=== PATIENT | female | born 1955 | race Caucasian/White ===

== ENCOUNTER 2022-03-07 19:47 | Observation (INO) | payer MEDICARE, SELFPAY ==
[2022-03-07 19:48] VITALS: BP 103/80; PULSE 113; RESP 15; TEMP 36.7; O2SAT 94; BMI 29.8
[2022-03-07 20:37] LABS: Hematocrit 35.3 % (37-47); Hemoglobin 10.9 g/dL (12.0-15.0); Mean Corp Hgb Conc 30.9 g/dL (32-36); Mean Corpuscular Hgb 25.3 pg (27.0-32.0); Mean Corpuscular Volume 82.1 fL (81-99); Mean Platelet Vol. 9.1 fl (6.2-12.0); POSITIVE COUNT YES; POSITIVE DIFFERENTIAL YES; POSITIVE MORPHOLOGY YES; Platelet Count 285 K/mm3 (150-450); RBC Distribution Width CV 14.6 % (11.6-14.6); RBC Distribution Width SD 43.4 fl (35.1-43.9)
[2022-03-07 20:52] LABS: Differential Indicated MANUAL DIFF; White Blood Count 1.2 K/mm3 (4.4-11.0)
[2022-03-07 20:54] LABS: Anion Gap 11 (5-15); BUN 15 mg/dL (7-18); BUN/Creat Ratio 17.1 RATIO (10-20); Calcium,Total 9.4 mg/dL (8.5-10.1); Chloride 92 mmol/L (98-107); Creatinine, Serum 0.88 mg/dL (0.55-1.02); EST Glomerular Filtration Rate 68 mL/min (>60); Est Glom Filt Rate - Afr Amer 82 mL/min (>60); Estimated Creatinine Clearance 52.84 ml/min; Glucose 136 mg/dL (74-106); Potassium 3.4 mmol/L (3.5-5.1); Sodium Level 130 mmol/L (136-145)
[2022-03-07 21:25] VITALS: BP 99/70; PULSE 96; RESP 18; O2SAT 96
--- NOTE | 2022-03-07 21:32 | EKG12_ITS ---
Test Reason : DYSRHYTHMIA Blood Pressure : / mmHG Vent. Rate : 091 BPM Atrial Rate : 091 BPM P-R Int : 150 ms QRS Dur : 086 ms QT Int : 376 ms P-R-T Axes : 009 -22 005 degrees QTc Int : 462 ms Normal sinus rhythm Poor R wave progression Confirmed by CRYSTAL SAUL, RONI ([id number]), restaurant expeditor TANJA PEÑA ([id number]) on 03/10/2022 7:54:57 AM Referred By: PL Confirmed By:RONI ROJAS MD
--- NOTE | 2022-03-07 21:33 | EDS_ITS ---
HPI History of Present Illness Chief Complaint: Nausea/Vomiting/Diarrhea Informant: patient Narrative Narrative: Patient presents with nausea vomiting diarrhea and just feeling overall weak. She was diagnosed with ovarian cancer back in December. Had hysterectomy and lysis of some adhesions in January. She was told that they got all the cancer. It sounds like the adhesions were thought to be due to prior surgery she has had including appendectomy. She just had her first chemotherapy on Wednesday. On Wednesday she started having diarrhea and has had some nausea vomiting. Her appetite is down. She just feels weak and tired. She is not really having pain. She has not had fevers chills. No coughing. No dysuria. No rashes. It sounds like she is on Zofran at home but it is just not helping. Only other medical problem that she states is history of asthma. Nothing really makes her symptoms better. Trying to eat or drink makes them worse. [facility] Medical History Asthma Cancer Home Medications fluticasone furoate 100 mcg-vilanterol 25 mcg/dose inhalation powder (Breo Ellipta) 1 inh inhalation DAILY 03/07/22 [History Last Taken Unknown] montelukast 10 mg tablet 10 mg PO DAILY 03/07/22 [History Last Taken Unknown] ondansetron HCl 4 mg tablet 4 mg PO Q8H PRN Nausea 03/07/22 [History Last Taken Unknown] pravastatin 80 mg tablet 80 mg PO DAILY 03/07/22 [History Last Taken Unknown] Allergy/AdvReac Type Severity Reaction Status Date / Time cephalexin [From Keflex] Allergy Nausea/Vom/ Verified 03/07/22 19:52 Diarrhea Surgical History History of appendectomy History of cholecystectomy Social History Smoking Status: Never smoker ROS ROS ED Constitutional Constitutional ED: Denies chills, fever(s) or sweats Eyes Eyes: Denies change in vision ENT ENT ED: Denies sore throat Cardiovascular Cardiovascular: Denies chest pain or palpitations Respiratory/Chest Respiratory/Chest: Denies cough or dyspnea Gastrointestinal Gastrointestinal: Reports diarrhea, nausea and vomiting; Denies abdominal pain, constipation or melena Genitourinary Genitourinary ED: Denies dysuria Musculoskeletal Musculoskeletal: Denies arthralgias or myalgias Integumentary Denies rash Neurologic Neurologic: Denies headache(s) Endocrine Endocrinology: Denies polydipsia or polyuria Hematologic/Lymphatic Hematologic/Lymphatic: Denies easy bleeding or easy bruising Allergic/Immunologic Allergic/Immunologic ED: Denies urticaria EXAM Physical Exam Const Vital Signs: 03/07/22 19:48 03/07/22 21:25 03/07/22 23:10 Temperature 98.0 F Temperature Source Temporal Pulse Rate 113 H 96 90 Respiratory Rate 15 18 Blood Pressure 103/80 99/70 104/69 Blood Pressure Mean 87 79 80 Pulse Ox 94 96 Oxygen Delivery Method Room Air Room Air 03/08/22 00:32 Temperature Temperature Source Pulse Rate 86 Respiratory Rate 18 Blood Pressure 125/60 H Blood Pressure Mean 81 Pulse Ox 95 Oxygen Delivery Method Room Air Positive well nourished and well developed Constitutional Narrative: Patient does look a bit tired. She is nontoxic. General Appearance ED: well developed and NAD; Negative for cyanotic or diaphoretic HEENT Reports dry mucous membranes Mouth ED: Yes dry mucous membranes Mouth: dry mucous membranes Eyes General Eye ED: Negative for scleral icterus Neck no JVD Resp normal respiratory effort and clear to auscultation bilaterally Auscultation: Negative for wheezes Cardio regular rate and regular rhythm GI normal to inspection, nondistended, normoactive bowel sounds and non-tender GI Narrative: Well-healed lower midline incision Auscultation: normoactive bowel sounds Back/Spine no CVA tenderness Extremity normal to inspection General Extremety ED: Negative for edema or tenderness General Extremity: Negative for edema Neuro oriented x3 Psych mental status grossly normal Skin no rashes or lesions noted MDM MDM MDM Narrative Medical decision making narrative: Patient is rechecked. She is still nauseated and does not feel well. She has been given fluids. Her heart rate is improved a little bit. We will give her some Phenergan. She is not really having any UTI symptoms. However, she did have a UTI in January when she got dehydrated last time. Blood work shows low white count at 1.2 with an absolute neutrophil count of 0.7. Electrolytes show mild decrease his sodium potassium. Creatinine is preserved. Glucose is minimally elevated. Mild nonspecific elevation of alkaline phosphatase. Lactate is 2.0. Urine shows 10-25 white cells but negative nitrites and a relatively small amount leukocyte esterase. Patient is concerned about going home because she feels very weak tired and is still nauseated and does not feel she can eat or drink. I will try some Phenergan to see if this helps. I have paged her oncologist to discuss the case with them. I discussed the case with Dr. Clay. Patient is not improving. With her decreased absolute neutrophil count nausea vomiting she will be admitted. We discussed her urinalysis. Since she is not having a fever and urinary symptoms we will hold antibiotics. I did discuss case with hospitalist. Lab Data Labs: Laboratory Results - last 24 hr 03/07/22 03/07/22 03/07/22 20:28 20:28 21:45 WBC 1.2 L* RBC 4.30 Hgb 10.9 L Hct 35.3 L MCV 82.1 MCH 25.3 L MCHC 30.9 L RDW Std Deviation 43.4 RDW Coeff of Alvarez 14.6 Plt Count 285 MPV 9.1 Neut % (Auto) Not Reportable Absolute Neuts (auto) 0.7 L Absolute Lymphs (auto) 0.39 L Total Counted 100 Neutrophils % (Manual) 59 Band Neutrophils % 2 Lymphocytes % (Manual) 32 Monocytes % (Manual) 3 Eosinophils % (Manual) 4 Diff Path Review May foll Dohle Bodies 2+ Sodium 130 L Potassium 3.4 L Chloride 92 L Carbon Dioxide 27.0 Anion Gap 11 BUN 15 Creatinine 0.88 Estim Creat Clear Calc 52.84 Est GFR (MDRD) Af Amer 82 Est GFR (MDRD) Non-Af 68 BUN/Creatinine Ratio 17.1 Glucose 136 H Lactic Acid Calcium 9.4 Total Bilirubin 0.70 Direct Bilirubin 0.28 AST 66 H ALT 46 Alkaline Phosphatase 148 H Total Protein 8.3 H Albumin 2.6 L Globulin 5.7 H Lipase 78 Urine Color Urine Clarity Urine pH Ur Specific [place] Urine Protein Urine Glucose (UA) Urine Ketones Urine Occult Blood Urine Nitrite Urine Bilirubin Urine Urobilinogen Ur Leukocyte Esterase Urine RBC Urine WBC Ur Squamous Epith Cells Urine Bacteria Hyaline Casts Urine Mucus 03/07/22 03/07/22 21:45 23:05 WBC RBC Hgb Hct MCV MCH MCHC RDW Std Deviation RDW Coeff of Alvarez Plt Count MPV Neut % (Auto) Absolute Neuts (auto) Absolute Lymphs (auto) Total Counted Neutrophils % (Manual) Band Neutrophils % Lymphocytes % (Manual) Monocytes % (Manual) Eosinophils % (Manual) Diff Path Review Dohle Bodies Sodium Potassium Chloride Carbon Dioxide Anion Gap BUN Creatinine Estim Creat Clear Calc Est GFR (MDRD) Af Amer Est GFR (MDRD) Non-Af BUN/Creatinine Ratio Glucose Lactic Acid 2.0 Calcium Total Bilirubin Direct Bilirubin AST ALT Alkaline Phosphatase Total Protein Albumin Globulin Lipase Urine Color Yellow Urine Clarity Sl. Cloudy Urine pH 6.0 Ur Specific [place] 1.020 Urine Protein 100 H Urine Glucose (UA) 100 H Urine Ketones 5 H Urine Occult Blood 50 H Urine Nitrite Negative Urine Bilirubin 1 H Urine Urobilinogen 1 H Ur Leukocyte Esterase 25 H Urine RBC 0-5 SEEN Urine WBC 10-25 SEEN Ur Squamous Epith Cells 0-5 SEEN Urine Bacteria 2+ Hyaline Casts 10-25 SEEN Urine Mucus 0 SEEN Radiography Diagnostic Testing: Clinical Impression(s) from Imaging Studies Chest X-Ray 03/07/22 21:55 IMPRESSION: No evidence of active intrathoracic disease. Electronically Signed: Victorina Reese MD at 22:13 EDT , Discharge Plan Triage Chief Complaint: Nausea/Vomiting/Diarrhea ED Provider: Darion Mejia Dx/Rx/DC Orders Clinical Impression: Intractable vomiting with nausea, Diarrhea, Neutropenia, Chemotherapy adverse reaction Prescriptions: No Action pravastatin 80 mg Tablet 80 mg PO DAILY montelukast 10 mg Tablet 10 mg PO DAILY fluticasone furoate-vilanterol [Breo Ellipta] 100-25 mcg/dose Blister With Device 1 inh INHALATION DAILY ondansetron HCl [Zofran] 4 mg Tablet 4 mg PO Q8H PRN (Reason: Nausea) Disposition Disposition: Acute Care Hospital [facility]
[2022-03-07] MEDS: 0.9% Normal Saline 1,000 ML 1000 ML IV (21:48)
[2022-03-07] MEDS: Ondansetron 4 MG/2 ML Vial IV (21:48)
--- NOTE | 2022-03-07 21:55 | RAD_ITS ---
STUDY: X-RAY CHEST REASON FOR EXAM: Female, 66 years old. sob PT RCVD HER 1ST CHEMO ON WEDNESDAY FOR OVARIAN CA. C/O NAUSEA, DIARRHEA AND DRY HEAVING SINCE WEDNESDAY TECHNIQUE: AP portable. 9:54 PM. COMPARISON: None. FINDINGS: LINES/DEVICES: Indwelling central venous catheter tip in the region of the mid SVC with port overlying the left chest. LUNGS: No consolidation. No pneumothorax. MEDIASTINUM: Aorta is tortuous and atherosclerotic. CARDIAC SILHOUETTE: Not enlarged. BONES AND SOFT TISSUES: Degenerative changes in the dorsal spine. Old right rib fractures. RAD/Chest 1 View (Portable) IMPRESSION: No evidence of active intrathoracic disease. Electronically Signed: Victorina Reese MD at 22:13 EDT ,
--- NOTE | 2022-03-07 21:56 | NURSING ---
attempted to obtain urine pt up to [facility] [place] unable to void.
[2022-03-07 22:14] LABS: Dohle Bodies 2+; Eosinophil 4 % (0-5); Lymphocyte 32 % (19-41); Monocyte 3 % (0-10); Neutrophil-Band 2 % (0-5); Neutrophil-Segmented 59 % (47-70); Total Cells Counted 100 (MANUAL DIFF)
[2022-03-07 22:16] LABS: Absolute Lymphocyte Count 0.39 X10^3/uL (0.83-4.51); Absolute Neutrophil Count 0.7 X10^3/uL (2.0-7.7)
[2022-03-07 22:33] LABS: AST(SGOT) 66 U/L (15-37); Alanine Aminotransfer ALT/SGPT 46 U/L (13-56); Albumin, Serum 2.6 g/dL (3.2-5.0); Alkaline Phosphatase 148 U/L (45-117); Bilirubin, Direct 0.28 mg/dL (0.00-0.30); Globulin 5.7 g/dL (2.2-4.2); Lipase 78 U/L (73-393); Protein, Total 8.3 g/dL (6.4-8.2)
--- NOTE | 2022-03-07 22:34 | NURSING ---
pt up to [facility] [place] unable to obtain urine sample.
[2022-03-07 23:10] VITALS: BP 104/69; PULSE 90
[2022-03-07 23:13] LABS: Mucous, Urine 0 SEEN /hpf (<or=2+)
[2022-03-07 23:34] LABS: Color, Urine Yellow (Yellow); Glucose, Dipstick 100 mg/dl (Normal); Ketone-Dipstick 5 mg/dl (Negative); Leukocyte Esterase-Dipstick 25 /ul (Negative); Nitrite-Dipstick Negative (Negative); Occult Blood-Urine 50 /ul (Negative); Protein-Dipstick 100 mg/dl (Negative); Urine Clarity Sl. Cloudy (Clear); Urine Urobilinogen 1 mg/dl (Normal)
[2022-03-07 23:45] LABS: Urine Bilirubin Dipstick 1 mg/dL (Negative)
[2022-03-07 23:47] LABS: Bacteria 2+ /hpf (None Seen); White Blood Cells 10-25 SEEN /hpf (0-5)
[2022-03-07 23:48] LABS: Squamous Epithelial Cells - UA 0-5 SEEN /hpf (5-10)
[2022-03-07 23:49] LABS: Hyaline Cast 10-25 SEEN /lpf (0-5); Red Blood Cells-Urine 0-5 SEEN /hpf (0-5)
[2022-03-08] VITALS (10 sets, daily range): BP systolic 90–125; BP diastolic 58–73; PULSE 70–86; RESP 16–18; TEMP 36.7–37.4; O2SAT 95–99; BMI 29.5
[2022-03-08] MEDS: proMETHazine 25 MG/ML Syringe 12.5 MG IM (00:21)
--- NOTE | 2022-03-08 00:34 | PCM.HP.STD ---
HPI - General General Date of Admission: 03/08/22 Date of Service: 03/08/22 Chief Complaint: N/V/D, recent chemotherapy start. HPI Narrative The patient is a 66 y/o F w/ PMHx: Asthma w/ Allergic rhinitis, HLD, Diagnosis 12/2021 Ovarian CA s/p hysterectomy with GABBY 01/2022 with reportedly diffusely metastatic cancer at that time with initiation of chemotherapy starting this Wednesday with onset starting on Wednesday loose stools, nausea, emesis, fatigue, malaise, poor intake ability with no fever or chills nor any recent cough, dyspnea, dysuria, abdominal pain however given difficulty maintaining appropriate intake prompted ED presentation. Patient of note denies any radiation history. She does have a left upper chest port. She follows with Dr. Crain with [facility] oncology. Work-up in the ED included T 98, heart rate initially 113 with most recent repeat 90, BP 103/80 with most recent repeat 104/69, respiratory rate 15-18, 94 to 96% on room air, CBC with WBC 1.2, hemoglobin 10.9, MCV 82.1, platelet 25 with neutropenia and lymphopenia, CMP with sodium 130, potassium 3.4, chloride 92, glucose 136, lactic acid 2.0, total bilirubin 0.70, direct bilirubin 0.28, AST/ALT 66/46, alk phos 148, lipase 78, urinalysis with elevated specific remedy 1.020, protein 100, glucose 100, ketone 5, occult blood 50, negative nitrite, leukocyte Estrace 25, urine WBCs 10-25, 2+ urine bacteria, urine culture pending per ED, blood culture pending per ED x2, chest x-ray with no acute cardiopulmonary findings. In the ED patient administered normal saline bolus and Zofran 4 mg IV x1. [facility] Medical History (Updated 03/08/22 @ 01:[address] Clau Gómez MD) Allergic rhinitis Asthma HLD (hyperlipidemia) Ovarian cancer Overweight Home Medications fluticasone furoate 100 mcg-vilanterol 25 mcg/dose inhalation powder (Breo Ellipta) 1 inh inhalation DAILY 03/07/22 [History Last Taken Unknown] montelukast 10 mg tablet 10 mg PO DAILY 03/07/22 [History Last Taken Unknown] ondansetron HCl 4 mg tablet 4 mg PO Q8H PRN Nausea 03/07/22 [History Last Taken Unknown] pravastatin 80 mg tablet 80 mg PO DAILY 03/07/22 [History Last Taken Unknown] Allergy/AdvReac Type Severity Reaction Status Date / Time cephalexin [From Keflex] Allergy Nausea/Vom/ Verified 03/08/22 01:34 Diarrhea Family History (Updated 03/08/22 @ 01:[address] Clau Gómez MD) Mother CAD (coronary artery disease) HLD (hyperlipidemia) Heart disease Father Heart disease Diabetes age 68 secondary to complicates of diabetes. Surgical History (Updated 03/08/22 @ 01:[address] Clau Gómez MD) History of appendectomy History of cholecystectomy History of hysterectomy Social History (Updated 03/08/22 @ 01:[address] Clau Gómez MD) household members: spouse Smoking Status: Never smoker alcohol intake: never substance use type: does not use ROS ROS Narrative Admission Review of Systems: CONSTITUTIONAL: No weight loss, fever, chills, + weakness or fatigue. HEENT: Eyes: No visual loss, blurred vision, double vision or yellow sclerae. Ears, Nose, Throat: No hearing loss, sneezing, congestion, runny nose or sore throat. SKIN: No rash or itching, lesions, wounds. CARDIOVASCULAR: No chest pain, chest pressure or chest discomfort, palpitations, edema, orthopnea, syncopal events. RESPIRATORY: No shortness of breath, cough or sputum, wheezing, hemoptysis. GASTROINTESTINAL: + anorexia, nausea, vomiting, diarrhea, No abdominal pain, melena, BRBPR. GENITOURINARY: No dysuria, frequency, urgency or retention. NEUROLOGICAL: No headache, dizziness, syncope, paralysis, ataxia, numbness or tingling in the extremities, focal weakness, change in bowel or bladder control, seizure. MUSCULOSKELETAL: + muscle, back pain, joint pain or stiffness. HEMATOLOGIC: No anemia, bleeding or bruising. LYMPHATICS: No enlarged nodes. No history of splenectomy. PSYCHIATRIC: No history of depression or anxiety. ENDOCRINOLOGIC: No reports of sweating, cold or heat intolerance. No polyuria or polydipsia. ALLERGIES: + history of asthma, rhinitis. Vital Signs Vital Signs Vital Signs: 03/07/22 19:48 03/07/22 21:25 03/07/22 23:10 Temperature 98.0 F Temperature Source Temporal Pulse Rate 113 H 96 90 Respiratory Rate 15 18 Blood Pressure 103/80 99/70 104/69 Blood Pressure Mean 87 79 80 Pulse Ox 94 96 Oxygen Delivery Method Room Air Room Air 03/08/22 00:32 Temperature Temperature Source Pulse Rate 86 Respiratory Rate 18 Blood Pressure 125/60 H Blood Pressure Mean 81 Pulse Ox 95 Oxygen Delivery Method Room Air Weight Weight: 174 lb Body Mass Index (BMI) 29.8 Physical Exam Narrative Physical Examination: General: Awake, alert, oriented x 3 and cooperative, laying in the ED bed, fatigued, ill-appearing. Skin: Normal color, normal turgor, no icterus, no cyanosis. HEENT: AT/NC, EOMI, PERRLA, dry MM, no carotid bruits or JVD noted. Lungs: Mildly diminished, greater bases, appropriate effort, no rales, ronchi or wheezing. Heart: Regular rate and rhythm; no gallop, rub audible. Abdomen: Soft, overweight, NTTP no rebound or guarding, ND, mildly hyperactive BS, no HSM. Extremities: No cyanosis, clubbing, or edema. Neurological: Patient awake, alert, oriented as noted, cognitive function baseline intact; pupils equally reactive to light and accommodation, cranial nerves II-XII grossly normal, moving all 4 extremities, no focal deficits, strength moderately global decrease secondary to acute presentation. Psychiatric: Affect appears flat, fatigued, no acute evidence of depressive or anxiety feelings. Results Lab / Micro Data Result Diagrams: 03/07/22 20:28 03/07/22 20:28 Labs: Laboratory Results - last 24 hr 03/07/22 20:28: WBC 1.2 L*, RBC 4.30, Hgb 10.9 L, Hct 35.3 L, MCV 82.1, MCH 25.3 L, MCHC 30.9 L, RDW Std Deviation 43.4, RDW Coeff of Alvarez 14.6, Plt Count 285, MPV 9.1, Neut % (Auto) Not Reportable, Absolute Neuts (auto) 0.7 L, Absolute Lymphs (auto) 0.39 L, Total Counted 100, Neutrophils % (Manual) 59, Band Neutrophils % 2, Lymphocytes % (Manual) 32, Monocytes % (Manual) 3, Eosinophils % (Manual) 4, Diff Path Review May Do tonyahlbria Bodies 2+ 03/07/22 20:28: Sodium 130 L, Potassium 3.4 L, Chloride 92 L, Carbon Dioxide 27.0, Anion Gap 11, BUN 15, Creatinine 0.88, Estim Creat Clear Calc 52.84, Est GFR (MDRD) Af Amer 82, Est GFR (MDRD) Non-Af 68, BUN/Creatinine Ratio 17.1, Glucose 136 H, Calcium 9.4 03/07/22 21:45: Total Bilirubin 0.70, Direct Bilirubin 0.28, AST 66 H, ALT 46, Alkaline Phosphatase 148 H, Total Protein 8.3 H, Albumin 2.6 L, Globulin 5.7 H, Lipase 78 03/07/22 21:45: Lactic Acid 2.0 03/07/22 23:05: Urine Color Yellow, Urine Clarity Sl. Cloudy, Urine pH 6.0, Ur Specific Sims 1.020, Urine Protein 100 H, Urine Glucose (UA) 100 H, Urine Ketones 5 H, Urine Occult Blood 50 H, Urine Nitrite Negative, Urine Bilirubin 1 H, Urine Urobilinogen 1 H, Ur Leukocyte Esterase 25 H, Urine RBC 0-5 SEEN, Urine WBC 10-25 SEEN, Ur Squamous Epith Cells 0-5 SEEN, Urine Bacteria 2+, Hyaline Casts 10-25 SEEN, Urine Mucus 0 SEEN Radiology Impression Chest X-Ray 03/07/22 21:55 IMPRESSION: No evidence of active intrathoracic disease. Electronically Signed: Victorina Reese MD at 22:13 EDT Reading Location ID and State: [address] [place] [address] Tel , Service support , Assessment & Plan Assessment/Plan (1) Nausea vomiting and diarrhea: PLAN: Plan The patient is a 66 y/o F w/ PMHx: Asthma w/ Allergic rhinitis, HLD, Diagnosis 12/2021 Ovarian CA s/p hysterectomy with GABBY 01/2022 with reportedly diffusely metastatic cancer at that time with initiation of chemotherapy starting this Wednesday with onset starting on Wednesday loose stools, nausea, emesis, fatigue, malaise, poor intake ability with no fever or chills nor any recent cough, dyspnea, dysuria, abdominal pain however given difficulty maintaining appropriate intake prompted ED presentation. #1. N/V/D, suspected reaction from recent chemotherapy however certainly possibility of gastroenteritis: We will admit to medical surgical floor, maintain on neutropenic precautions to be cautious, continue hydration, will obtain c diff, stool cx if any recurrent diarrhea, chest x-ray not marked, urinalysis not marked but noted 2+ urine bacteria with some WC is present although not markedly elevated leukocyte Estrace or nitrite and per Oncology given no urinary symptoms recommended avoidance of initiating abx for ? UTI, PRN snti-emetics, PRN pain regimen, start with clears and ADA. If onset of fevers however will start empiric abx regimen given neutropenic setting. Will continue Oncology consultation, initiated per ED. #2. Lymphopenia, neutropenia, normocytic anemia suspected likely secondary to underlying metastatic Ovarian cancer and recent chemotherapy: Admission CBC with WC 1.2, hemoglobin 10.2, MCV 82.1, platelet 25 with neutropenia and lymphopenia, continue to maintain on neutropenic precautions be cautious, repeat CBC in a.m. Mag and phos levels requested given recent chemotherapy. #3. Hyponatremia, hypokalemia suspected: Given GI losses suspect hypovolemia as etiology, admission sodium 130, chloride 92, continued hydration with repeat CMP in AM. #4. Hypokalemia: Admission K+ 3.4, magnesium and phosphorus levels pending as noted above, supplementation given, repeat level in AM. #5. Hyperglycemia, mild: Admission glucose 136, possibly stress response, hemoglobin A1c requested to be cautious. #6. Chronic Asthma w/ Allergic rhinitis: We will temporarily hold patient home inhalers and in the interim transition to ATC DuoNeb therapies, PRN albuterol, HOB, IS parameters, continue patient home montelukast regimen. #7. Hyperlipidemia: Continue home statin regimen. #8. DVT prophylaxis: SCDs, Lovenox. #9. CODE status: Patient HCPOA is her and her daughter is secondary and living will is currently in place. Discussed CODE status at length including difference between FULL code, DNR-CCA and DNR-CC status. Following discussions about the differences in these status, requested Full Code status. Advanced Care Planning Face to Face Time:16 minutes. Charges/Coding Visit Charges OBSV E&M: 04658 Initial observation care L3 Procedures Hospitalists Procedures: 42013 Advncd Care Plan 30 Min
[2022-03-08 01:23] LABS: Magnesium 1.9 mg/dL (1.6-2.6); Phosphorus 2.5 mg/dL (2.5-4.9)
[2022-03-08] MEDS: Pramipexole Di-HCl 0.125 MG Tablet PO ×2 (01:51→22:07)
[2022-03-08] MEDS: Famotidine 20 MG Tablet PO ×3 (01:51→22:08)
[2022-03-08] MEDS: Potassium Chloride Oral Tablet 20 MEQ 40 MEQ PO (01:51)
[2022-03-08] MEDS: 0.9% Normal Saline 1,000 ML 125 ML IV (01:51)
[2022-03-08 01:57] LABS: Reflex Lactate? Y
[2022-03-08 02:30] LABS: Absolute Lymphocyte Count 0.56 X10^3/uL (0.83-4.51); Absolute Neutrophil Count 0.4 X10^3/uL (2.0-7.7); Eosinophil# 0.05 X10^3/uL; Eosinophils% 4.7 % (0-5); Hemoglobin 9.5 g/dL (12.0-15.0); Lymphocyte # 0.56 X10^3/ul (0.83-4.51); Lymphocyte % 52.3 % (19-41); Mean Corp Hgb Conc 30.6 g/dL (32-36); Mean Corpuscular Hgb 25.3 pg (27.0-32.0); Mean Corpuscular Volume 82.7 fL (81-99); Mean Platelet Vol. 9.1 fl (6.2-12.0); Monocyte# 0.07 X10^3/uL; Monocyte% 6.5 % (0-10); NRBC Flagged by Analyzer 0 % (0-5); Neutrophil # 0.38 X10^3/uL (2.7-7.7); Neutrophil % 35.6 % (47-70); POSITIVE COUNT YES; POSITIVE DIFFERENTIAL YES; POSITIVE MORPHOLOGY YES; Platelet Count 217 K/mm3 (150-450); RBC Distribution Width CV 14.6 % (11.6-14.6); RBC Distribution Width SD 44.1 fl (35.1-43.9); Red Blood Count 3.75 M/mm3 (4.2-5.4)
[2022-03-08 02:45] LABS: Differential Indicated SCAN CRITERIA MET
[2022-03-08 02:46] LABS: White Blood Count 1.1 K/mm3 (4.4-11.0)
[2022-03-08 03:05] LABS: ALB/GLOB Ratio 0.5 RATIO (0.9-2.4); AST(SGOT) 51 U/L (15-37); Alanine Aminotransfer ALT/SGPT 37 U/L (13-56); Albumin, Serum 2.1 g/dL (3.2-5.0); Alkaline Phosphatase 120 U/L (45-117); Anion Gap 7 (5-15); BUN 14 mg/dL (7-18); BUN/Creat Ratio 20.2 RATIO (10-20); Calcium,Total 8.6 mg/dL (8.5-10.1); Chloride 97 mmol/L (98-107); Creatinine, Serum 0.69 mg/dL (0.55-1.02); EST Glomerular Filtration Rate 89 mL/min (>60); Est Glom Filt Rate - Afr Amer 108 mL/min (>60); Globulin 4.2 g/dL (2.2-4.2); Glucose 116 mg/dL (74-106); Potassium 3.2 mmol/L (3.5-5.1); Protein, Total 6.3 g/dL (6.4-8.2); Sodium Level 131 mmol/L (136-145)
[2022-03-08 03:06] LABS: Hemoglobin A1c 5.7 % (3.8-5.6)
[2022-03-08 03:08] LABS: Differential Comment SCANNED
[2022-03-08] MEDS: proCHLORPERazine 10 MG/2 ML Vial 5 MG IV (04:36)
[2022-03-08] MEDS: 0.9% Saline Lock 10 ML Syringe IV (04:36)
[2022-03-08] MEDS: Ipratropium/Albuterol Sulfate 3 ML AMPUL.NEB INHALATION ×2 (07:27→13:56)
--- NOTE | 2022-03-08 07:53 | NURSING ---
Attempted to call Dr. Clay, [facility] oncology with no answer, voicemail is full. Primary and charger tester aware of consult and unable to complete consult.
[2022-03-08] MEDS: Potassium Chloride Oral Tablet 20 MEQ 60 MEQ PO (09:48)
[2022-03-08 10:10] LABS: Platelet Estimate ADEQUATE (ADEQ); Red Cell Morphology NORM C+C NORMAL (NORM C&C)
[2022-03-08] MEDS: Enoxaparin 40 MG/0.4 ML Syringe SC (11:49)
--- NOTE | 2022-03-08 11:50 | PN.HOSP_ITS ---
Hospitalist Note 66-year-old female recently diagnosed with ovarian cancer status post debulking and GABBY presented to the emergency department with persistent nausea vomiting and diarrhea after initiating her chemotherapy on Wednesday. Symptoms started Wednesday and progressively got worse. Feeling a bit better today however still having some nausea and diarrhea. Stool samples are pending. Continue IV hydration. [place] diet initiated. Reevaluate 03/09/2022 and if improves may be able to go home. Follows with Dr. Crain. Patient is neutropenic. Electrolytes are abnormal with some hyponatremia and hypokalemia. Potassium has been replaced and suspect hypovolemic hyponatremia related to her dehydration. Phos and mag have been stable. Blood and urine cultures were obtained in the emergency department however she is not on any empiric antibiotics at this time.
--- NOTE | 2022-03-08 14:13 | CPS ---
Pt would like to stop aerosols and bring in her own Breo and take. I explained it would be sent to pharmacy if her daughter brings it in tomorrow morning.
[2022-03-08] MEDS: Menthol/Lanolin/Calamine/Znox 113 GM Tube 1 APPLIC TOPICAL (22:07)
[2022-03-08] MEDS: Pravastatin 80 MG Tablet PO (22:07)
[2022-03-08] MEDS: 0.9% Normal Saline 1,000 ML 70 ML IV (22:08)
[2022-03-08] MEDS: Montelukast 10 MG Tablet PO (22:08)
[2022-03-09] MEDS: Ondansetron 4 MG/2 ML Vial IV (02:20)
[2022-03-09 02:22] VITALS: BP 118/77; PULSE 77; RESP 16; TEMP 37.2; O2SAT 96
[2022-03-09] MEDS: proCHLORPERazine 10 MG/2 ML Vial 5 MG IV ×3 (03:40→18:48)
[2022-03-09 06:16] LABS: Absolute Lymphocyte Count 0.83 X10^3/uL (0.83-4.51); Absolute Neutrophil Count 0.2 X10^3/uL (2.0-7.7); Eosinophil# 0.06 X10^3/uL; Eosinophils% 4.5 % (0-5); Hematocrit 29.2 % (37-47); Hemoglobin 9.1 g/dL (12.0-15.0); Lymphocyte # 0.83 X10^3/ul (0.83-4.51); Lymphocyte % 62.4 % (19-41); Mean Corp Hgb Conc 31.2 g/dL (32-36); Mean Corpuscular Hgb 26.1 pg (27.0-32.0); Mean Corpuscular Volume 83.7 fL (81-99); Mean Platelet Vol. 9.4 fl (6.2-12.0); Monocyte# 0.21 X10^3/uL; Monocyte% 15.8 % (0-10); NRBC Flagged by Analyzer 0 % (0-5); Neutrophil # 0.21 X10^3/uL (2.7-7.7); Neutrophil % 15.8 % (47-70); POSITIVE COUNT YES; POSITIVE DIFFERENTIAL YES; Platelet Count 200 K/mm3 (150-450); RBC Distribution Width CV 14.7 % (11.6-14.6); RBC Distribution Width SD 44.8 fl (35.1-43.9); Red Blood Count 3.49 M/mm3 (4.2-5.4); White Blood Count 1.3 K/mm3 (4.4-11.0)
[2022-03-09] MEDS: proMETHazine 25 MG/ML Syringe 12.5 MG IM (06:34)
[2022-03-09 06:52] LABS: Differential Indicated SCAN CRITERIA MET
[2022-03-09 07:03] LABS: ALB/GLOB Ratio 0.5 RATIO (0.9-2.4); AST(SGOT) 56 U/L (15-37); Alanine Aminotransfer ALT/SGPT 38 U/L (13-56); Albumin, Serum 1.9 g/dL (3.2-5.0); Alkaline Phosphatase 122 U/L (45-117); Anion Gap 9 (5-15); BUN 6 mg/dL (7-18); BUN/Creat Ratio 12.5 RATIO (10-20); Calcium,Total 7.9 mg/dL (8.5-10.1); Chloride 100 mmol/L (98-107); Creatinine, Serum 0.48 mg/dL (0.55-1.02); EST Glomerular Filtration Rate 136 mL/min (>60); Est Glom Filt Rate - Afr Amer 165 mL/min (>60); Globulin 4.2 g/dL (2.2-4.2); Glucose 100 mg/dL (74-106); Magnesium 1.7 mg/dL (1.6-2.6); Phosphorus 2.1 mg/dL (2.5-4.9); Protein, Total 6.1 g/dL (6.4-8.2); Sodium Level 135 mmol/L (136-145)
[2022-03-09 07:23] LABS: Anisocytosis 1+
--- NOTE | 2022-03-09 07:52 | PN.HOSP_ITS ---
Subjective Subjective Follow-up on acute gastroenteritis/neutropenia: Patient was seen and examined. She complains of diarrhea, large, ongoing every, denied any hematochezia. Denied any fever or chills. She stated that she has not had any nausea or vomiting since she came in. Objective Data Objective Data Vital Signs: Vital Signs Temp Pulse Resp BP Pulse Ox O2 Del Method 98.9 F 77 16 118/77 96 Room Air 03/09/22 02:22 03/09/22 02:22 03/09/22 02:22 03/09/22 02:22 03/09/22 02:22 03/09/22 02:22 Oxygen Delivery Method Room Air Weight: 77.6 kg Body Mass Index (BMI) 29.5 Intake & Output: Intake and Output for Last 24 Hours 03/07/22 03/08/22 03/09/22 23:59 23:59 23:59 Intake Total 3220 / 3620 620 / 620 Output Total 100 / 100 Balance 3120 / 3520 620 / 620 Medical Nutrition Assessment Dietitian: Malnutrition Criteria Met Start: 03/08/22 11:08 Freq: Status: Active Protocol: Document 03/08/22 11:08 (Rec: 03/08/22 11:08 [id number]) Nutrition Malnutrition Evidence of Malnutrition Exists Yes Malnutrition (severe): Chronic Evidenced By Suboptimal Energy Intake ( Severe),Weight Loss (Severe) Clinical Problem Chronic Disease or Condition Related Malnutrition Etiology severe related to ovarian cancer with mets Signs/Symptoms as evidenced by pt consuming < 75% of estimated energy needs for >1 month and 21.9% weight loss in 4 months. Status Active Problem Recommendation Dietitian Recommendations/Changes Recommend liberalizing diet to Regular if medically able due to weight loss. Continue 120mL Ensure Clear TID with medpass Lab / Micro Data Result Diagrams: 03/09/22 05:27 03/09/22 05:27 Labs: Laboratory Results - last 24 hr 03/07/22 20:28: Platelet Estimate ADEQUATE, RBC Morphology NORM C+C 03/09/22 05:27: WBC 1.3 L*, RBC 3.49 L, Hgb 9.1 L, Hct 29.2 L, MCV 83.7, MCH 26.1 L, MCHC 31.2 L, RDW Std Deviation 44.8 H, RDW Coeff of Alvarez 14.7 H, Plt Count 200, MPV 9.4, Immature Gran % (Auto) 1.500 H, Neut % (Auto) 15.8 L, Lymph % (Auto) 62.4 H, [place] % (Auto) 15.8 H, Eos % (Auto) 4.5, Baso % (Auto) 0.0, Absolute Neuts (auto) 0.2 L, Absolute Lymphs (auto) 0.83, Nucleated RBC % 0, Diff Path Review May foll, Anisocytosis 1+ 03/09/22 05:27: Sodium 135 L, Potassium 3.0 L, Chloride 100, Carbon Dioxide 26.0, Anion Gap 9, BUN 6 L, Creatinine 0.48 L, Estim Creat Clear Calc 46.50, Est GFR (MDRD) Af Amer 165, Est GFR (MDRD) Non-Af 136, BUN/Creatinine Ratio 12.5, Glucose 100, Calcium 7.9 L, Phosphorus 2.1 L, Magnesium 1.7, Total Bilirubin 0.40, AST 56 H, ALT 38, Alkaline Phosphatase 122 H, Total Protein 6.1 L, Albumin 1.9 L, Globulin 4.2, Albumin/Globulin Ratio 0.5 L Physical Exam Narrative Physical exam: General: Alert, Oriented x3, Cooperative, appeared fatigued HEENT: Atraumatic Oral: Moist Mucosa Neck: Supple Lungs: Clear to auscultation Cardiovascular: HS I+II, regular, no murmurs Abdomen: Bowel Sounds Present, Soft, Non Tender Extremities: No edema Skin: No rashes, No breakdown Neurological: Grossly intact Psych/Mental Status: Appropriate Assessment & Plan Assessment/Plan (1) Nausea vomiting and diarrhea: PLAN: Plan 1. Acute gastroenteritis, likely viral, postchemotherapy Acute C. difficile enteric panel negative Continue to manage symptomatically with IV fluids, Imodium as needed 2. Neutropenia, ANC is 200, status post chemotherapy Discussed with oncology, will start Granix 400 mcg daily Trend CBCD 3. Hyponatremia/hypokalemia/hypomagnesemia/hypophosphatemia, secondary to #1 replaced, recheck in a.m. 4. Metastatic ovarian CA status post hysterectomy, lysis of adhesions, currently on chemotherapy Outpatient oncology follow-up 5. Severe protein calorie malnutrition, fountain brush assembler consulted, continue supplements 6. Rest of her chronic medical conditions including asthma/allergic rhinitis/hyperlipidemia appears to be stable 7. DVT PPx- Lovenox SC Charges/Coding Visit Charges Inpatient E&M: 57691 Subs Hosp L2
[2022-03-09] MEDS: Potassium Chloride Oral Tablet 20 MEQ 60 MEQ PO (08:17)
[2022-03-09 09:54] VITALS: BP 108/66; PULSE 86; RESP 15; TEMP 36.8; O2SAT 98
[2022-03-09] MEDS: TBO-FILGRASTIM 480 MCG/0.8 ML ML SC (09:57)
[2022-03-09] MEDS: Menthol/Lanolin/Calamine/Znox 113 GM Tube 1 APPLIC TOPICAL ×2 (09:58→22:27)
[2022-03-09] MEDS: Na Biphos/Potassium Phosphate PACKET 1 PACKET PO ×2 (09:59→14:25)
[2022-03-09] MEDS: Famotidine 20 MG Tablet PO ×2 (09:59→22:12)
[2022-03-09] MEDS: Enoxaparin 40 MG/0.4 ML Syringe SC (09:59)
[2022-03-09] MEDS: 0.9% Normal Saline 1,000 ML 100 ML IV (12:18)
--- NOTE | 2022-03-09 14:04 | CHAPLAIN ---
Type of Pastoral Visit _x__ Initial Visit ___ Follow-up Visit ___ On-call Visit ___ General Patient Visit ___ Spiritual Assessment ___ Family Conference ___ Bereavement ___ Rapid Response ___ Code Blue ___ Other (describe below) Pastoral Care Referral From _x__ Patient ___ Family ___ Nurse ___ Physician ___ Popcorn Candy Maker ___ Body Mechanic Apprentice ___ Other (describe below) Sacrament/Intervention _x__ Active listening ___ Anointing ___ Jehovah'S Witness ___ Bereavement ___ Communion ___ Jen exploration ___ ___ Life review _x__ Prayer ___ Reconciliation ___ Sacrament of Sick _x__ Supportive presence ___ Wedding ___ Other (describe below) Pastoral Comments patient and spouse are in the room; pt speaks of my first chemo treatment and it didn't go real well; pt speaks of planned treatments and how all this is so new to me; pt says she has lots of support and a sister lives next door; spouse says they will get through this and I am with her; states she has a lot of people praying for her; pt is not connected to a jen group but welcomes the support of prayer and 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
[2022-03-09] MEDS: KCL 40mEq in 0.9% NS 40 MEQ/1,000 ML IV.SOLN 100 MEQ IV ×2 (14:21→23:48)
[2022-03-09 15:03] VITALS: O2SAT 98
[2022-03-09 16:13] VITALS: BP 134/83; PULSE 80; RESP 18; TEMP 37.2; O2SAT 100
[2022-03-09] MEDS: 0.9% Saline Lock 10 ML Syringe IV (18:48)
[2022-03-09 22:08] VITALS: BP 112/69; PULSE 83; RESP 18; TEMP 37.1; O2SAT 98
[2022-03-09] MEDS: Pramipexole Di-HCl 0.125 MG Tablet PO (22:12)
[2022-03-09] MEDS: Pravastatin 80 MG Tablet PO (22:12)
[2022-03-09] MEDS: Montelukast 10 MG Tablet PO (22:12)
[2022-03-10] MEDS: proCHLORPERazine 10 MG/2 ML Vial 5 MG IV ×2 (03:34→07:57)
[2022-03-10] MEDS: 0.9% Saline Lock 10 ML Syringe IV ×2 (03:35→07:58)
[2022-03-10 03:38] VITALS: BP 114/70; PULSE 82; RESP 18; TEMP 37.3; O2SAT 96
[2022-03-10] MEDS: Loperamide 2 MG Capsule PO ×2 (03:42→07:57)
[2022-03-10 06:02] LABS: Absolute Lymphocyte Count 0.58 X10^3/uL (0.83-4.51); Eosinophil# 0.04 X10^3/uL; Eosinophils% 4.4 % (0-5); Hematocrit 27.8 % (37-47); Hemoglobin 8.6 g/dL (12.0-15.0); Lymphocyte # 0.58 X10^3/ul (0.83-4.51); Lymphocyte % 63.7 % (19-41); Mean Corp Hgb Conc 30.9 g/dL (32-36); Mean Corpuscular Hgb 25.4 pg (27.0-32.0); Mean Corpuscular Volume 82.2 fL (81-99); Monocyte# 0.26 X10^3/uL; Monocyte% 28.6 % (0-10); NRBC Flagged by Analyzer 0 % (0-5); Neutrophil # 0.02 X10^3/uL (2.7-7.7); Neutrophil % 2.2 % (47-70); POSITIVE COUNT YES; POSITIVE DIFFERENTIAL YES; POSITIVE MORPHOLOGY YES; Platelet Count 197 K/mm3 (150-450); RBC Distribution Width CV 14.6 % (11.6-14.6); RBC Distribution Width SD 44.1 fl (35.1-43.9); Red Blood Count 3.38 M/mm3 (4.2-5.4)
[2022-03-10 06:08] LABS: Differential Indicated SCAN CRITERIA MET; White Blood Count 0.9 K/mm3 (4.4-11.0)
[2022-03-10 06:25] LABS: Differential Comment SCANNED; Hypochromasia 1+
[2022-03-10 06:31] LABS: ALB/GLOB Ratio 0.5 RATIO (0.9-2.4); AST(SGOT) 50 U/L (15-37); Alanine Aminotransfer ALT/SGPT 39 U/L (13-56); Albumin, Serum 1.9 g/dL (3.2-5.0); Alkaline Phosphatase 131 U/L (45-117); Anion Gap 6 (5-15); BUN 3 mg/dL (7-18); Calcium,Total 8.2 mg/dL (8.5-10.1); Chloride 105 mmol/L (98-107); EST Glomerular Filtration Rate 130 mL/min (>60); Est Glom Filt Rate - Afr Amer 158 mL/min (>60); Globulin 4.1 g/dL (2.2-4.2); Glucose 102 mg/dL (74-106); Magnesium 1.7 mg/dL (1.6-2.6); Potassium 3.7 mmol/L (3.5-5.1); Sodium Level 137 mmol/L (136-145)
[2022-03-10 07:47] VITALS: BP 109/62; PULSE 73; RESP 18; TEMP 37.2; O2SAT 96
[2022-03-10 08:51] LABS: Pathologist Review Reviewed
[2022-03-10 08:53] LABS: Pathologist Review Reviewed
[2022-03-10 08:57] LABS: Pathologist Review Reviewed
--- NOTE | 2022-03-10 08:58 | CASEMGMT ---
Late entry for 03/09/22 at 1404 RN CM in to discuss TREJO form with patient. RN CM explained TREJO form, patient voiced understanding. Pt signed form and filed in chart. Pt provided with a copy of signed TREJO form. Patient had no further questions or concerns at this time.
--- NOTE | 2022-03-10 09:33 | CASEMGMT ---
Social Work SW checked w/pt and , asked them to bring in LW/Healthcare POA papers as able as they are not on file. Both state understanding. ARJUN [place]
[2022-03-10] MEDS: KCL 40mEq in 0.9% NS 40 MEQ/1,000 ML IV.SOLN 100 MEQ IV ×2 (10:12→19:55)
[2022-03-10] MEDS: Famotidine 20 MG Tablet PO ×2 (10:27→20:00)
[2022-03-10] MEDS: Enoxaparin 40 MG/0.4 ML Syringe SC (10:27)
[2022-03-10] MEDS: Na Biphos/Potassium Phosphate PACKET 1 PACKET PO ×4 (10:28→20:01)
[2022-03-10] MEDS: Menthol/Lanolin/Calamine/Znox 113 GM Tube 1 APPLIC TOPICAL ×4 (10:28→20:02)
[2022-03-10] MEDS: TBO-FILGRASTIM 480 MCG/0.8 ML ML SC (10:32)
[2022-03-10 11:13] LABS: Eosinophil# 0.04 X10^3/uL; Eosinophils% 3.6 % (0-5); Hematocrit 30.9 % (37-47); Hemoglobin 9.6 g/dL (12.0-15.0); Lymphocyte % 63.1 % (19-41); Mean Corp Hgb Conc 31.1 g/dL (32-36); Mean Corpuscular Hgb 25.9 pg (27.0-32.0); Mean Corpuscular Volume 83.3 fL (81-99); Mean Platelet Vol. 8.9 fl (6.2-12.0); Monocyte# 0.33 X10^3/uL; Monocyte% 29.7 % (0-10); NRBC Flagged by Analyzer 0 % (0-5); Neutrophil # 0.03 X10^3/uL (2.7-7.7); Neutrophil % 2.7 % (47-70); POSITIVE COUNT YES; POSITIVE DIFFERENTIAL YES; POSITIVE MORPHOLOGY YES; Platelet Count 193 K/mm3 (150-450); RBC Distribution Width CV 14.8 % (11.6-14.6); RBC Distribution Width SD 45.3 fl (35.1-43.9); Red Blood Count 3.71 M/mm3 (4.2-5.4)
[2022-03-10 11:24] LABS: White Blood Count 1.1 K/mm3 (4.4-11.0)
[2022-03-10 11:25] LABS: Differential Indicated SCAN CRITERIA MET
--- NOTE | 2022-03-10 11:38 | PCM.PN.HOSP ---
Subjective Subjective Follow-up on acute gastroenteritis/neutropenia: Patient was seen and examined.?Her diarrhea is almost resolved. No bowel movements after 4am. Denies any fever or chills. Objective Data Objective Data Vital Signs: Vital Signs Temp Pulse Resp BP Pulse Ox O2 Del Method 99.0 F 73 18 109/62 96 Room Air 03/10/22 07:47 03/10/22 07:47 03/10/22 07:47 03/10/22 07:47 03/10/22 07:47 03/10/22 07:50 Oxygen Delivery Method Room Air Weight: 77.6 kg Body Mass Index (BMI) 29.5 Intake & Output: Intake and Output for Last 24 Hours 03/08/22 03/09/22 03/10/22 23:59 23:59 23:59 Intake Total 3220 / 3620 4074.00 / 4074.00 1300 / 1300 Output Total 100 / 100 Balance 3120 / 3520 4074.00 / 4074.00 1300 / 1300 Medical Nutrition Assessment Dietitian: Malnutrition Criteria Met Start: 03/08/22 11:08 Freq: Status: Active Protocol: Document 03/08/22 11:08 KAYCEE (Rec: 03/08/22 11:08 [id number]) Nutrition Malnutrition Evidence of Malnutrition Exists Yes Malnutrition (severe): Chronic Evidenced By Suboptimal Energy Intake ( Severe),Weight Loss (Severe) Clinical Problem Chronic Disease or Condition Related Malnutrition Etiology severe related to ovarian cancer with mets Signs/Symptoms as evidenced by pt consuming < 75% of estimated energy needs for >1 month and 21.9% weight loss in 4 months. Status Active Problem Recommendation Dietitian Recommendations/Changes Recommend liberalizing diet to Regular if medically able due to weight loss. Continue 120mL Ensure Clear TID with medpass Lab / Micro Data Result Diagrams: 03/10/22 11:04 03/10/22 05:46 Labs: Laboratory Results - last 24 hr 03/07/22 20:28: Diff Path Review Reviewed 03/08/22 02:20: Diff Path Review Reviewed 03/09/22 05:27: Diff Path Review Reviewed 03/10/22 05:46: WBC 0.9 L*, RBC 3.38 L, Hgb 8.6 L, Hct 27.8 L, MCV 82.2, MCH 25.4 L, MCHC 30.9 L, RDW Std Deviation 44.1 H, RDW Coeff of Alvarez 14.6, Plt Count 197, MPV 9.0, Immature Gran % (Auto) 1.100 H, Neut % (Auto) 2.2 L, Lymph % (Auto) 63.7 H, [place] % (Auto) 28.6 H, Eos % (Auto) 4.4, Baso % (Auto) 0.0, Absolute Neuts (auto) 0.0 L, Absolute Lymphs (auto) 0.58 L, Nucleated RBC % 0, Differential Comment SCANNED, Diff Path Review May foll, Hypochromasia 1+ 03/10/22 05:46: Sodium 137, Potassium 3.7, Chloride 105, Carbon Dioxide 26.0, Anion Gap 6, BUN 3 L, Creatinine 0.50 L, Estim Creat Clear Calc 46.50, Est GFR (MDRD) Af Amer 158, Est GFR (MDRD) Non-Af 130, BUN/Creatinine Ratio 6.0 L, Glucose 102, Calcium 8.2 L, Phosphorus 2.0 L, Magnesium 1.7, Total Bilirubin 0.40, AST 50 H, ALT 39, Alkaline Phosphatase 131 H, Total Protein 6.0 L, Albumin 1.9 L, Globulin 4.1, Albumin/Globulin Ratio 0.5 L 03/10/22 11:04: WBC 1.1 L*, RBC 3.71 L, Hgb 9.6 L, Hct 30.9 L, MCV 83.3, MCH 25.9 L, MCHC 31.1 L, RDW Std Deviation 45.3 H, RDW Coeff of Alvarez 14.8 H, Plt Count 193, MPV 8.9, Immature Gran % (Auto) 0.900, Neut % (Auto) 2.7 L, Lymph % (Auto) 63.1 H, [place] % (Auto) 29.7 H, Eos % (Auto) 3.6, Baso % (Auto) 0.0, Absolute Neuts (auto) 0.0 L, Absolute Lymphs (auto) 0.70 L, Nucleated RBC % 0 Micro: Microbiology 03/07/22 23:05 Urine, Clean Catch Urine Culture - Final Enterococcus faecalis 03/07/22 21:45 Blood Culture (Wb) - Right Hand Blood Culture - Preliminary No growth in 48 hours. 03/07/22 21:49 Blood Culture (Wb) - Port Blood Culture - Preliminary No growth in 48 hours. 03/08/22 17:00 Stool Enteric Bacteriology - Final 03/08/22 17:00 Stool C. difficile DNA Amplification - Final Physical Exam Narrative Physical exam: General: Alert, Oriented x3, Cooperative HEENT: Atraumatic Oral: Moist Mucosa Neck: Supple Lungs: Clear to auscultation Cardiovascular: HS I+II, regular, no murmurs Abdomen: Bowel Sounds Present, Soft, Non Tender Extremities: No edema Skin: No rashes, No breakdown Neurological: Grossly intact Psych/Mental Status: Appropriate Assessment & Plan Assessment/Plan (1) Nausea vomiting and diarrhea: PLAN: Plan 1. Acute gastroenteritis, likely viral, postchemotherapy Acute C. difficile and enteric panel negative Continue to manage symptomatically with IV fluids, Imodium as needed 2. Neutropenia, WBC 1.1, ANC is 0, status post chemotherapy Continue Granix 480 mcg daily Trend CBCD 3. Hypomagnesemia/hypophosphatemia, secondary to #1 replaced, recheck in a.m. 4. Metastatic ovarian CA status post hysterectomy, lysis of adhesions, currently on chemotherapy Outpatient oncology follow-up 5. Severe protein calorie malnutrition, check airman consulted, continue supplements 6. Rest of her chronic medical conditions including asthma/allergic rhinitis/hyperlipidemia appears to be stable 7. DVT PPx- Lovenox SC Charges/Coding Visit Charges Inpatient E&M: 39575 Subs Hosp L2
[2022-03-10 11:56] LABS: Platelet Estimate ADEQUATE (ADEQ); Red Cell Morphology NORM C+C NORMAL (NORM C&C)
[2022-03-10 13:28] LABS: Pathologist Review Reviewed
[2022-03-10 14:14] VITALS: BP 122/78; PULSE 81; RESP 17; TEMP 37.1; O2SAT 99
[2022-03-10] MEDS: Pramipexole Di-HCl 0.125 MG Tablet PO (20:00)
[2022-03-10] MEDS: Nystatin Powder 15gm Bottle 1 APPLIC TOPICAL (20:01)
[2022-03-10] MEDS: Montelukast 10 MG Tablet PO (20:01)
[2022-03-10] MEDS: Pravastatin 80 MG Tablet PO (20:01)
[2022-03-10] MEDS: Acetaminophen 325 MG Tablet 650 MG PO (20:06)
[2022-03-10 20:24] VITALS: BP 116/69; PULSE 85; RESP 16; TEMP 37.6; O2SAT 100
[2022-03-11 02:52] VITALS: BP 105/58; PULSE 80; RESP 16; TEMP 37.5; O2SAT 96
[2022-03-11] MEDS: KCL 40mEq in 0.9% NS 40 MEQ/1,000 ML IV.SOLN 100 MEQ IV (05:25)
[2022-03-11] MEDS: Acetaminophen 325 MG Tablet 650 MG PO (05:30)
[2022-03-11 05:36] VITALS: TEMP 37.4
[2022-03-11 06:07] LABS: Absolute Lymphocyte Count 1.19 X10^3/uL (0.83-4.51); Absolute Neutrophil Count 0.2 X10^3/uL (2.0-7.7); Basophil# 0.01 X10^3/uL; Basophil% 0.5 % (0-1); Eosinophil# 0.05 X10^3/uL; Eosinophils% 2.4 % (0-5); Hematocrit 28.7 % (37-47); Hemoglobin 8.7 g/dL (12.0-15.0); Lymphocyte # 1.19 X10^3/ul (0.83-4.51); Mean Corp Hgb Conc 30.3 g/dL (32-36); Mean Corpuscular Hgb 25.4 pg (27.0-32.0); Mean Corpuscular Volume 83.7 fL (81-99); Mean Platelet Vol. 8.8 fl (6.2-12.0); Monocyte# 0.55 X10^3/uL; Monocyte% 26.8 % (0-10); NRBC Flagged by Analyzer 0 % (0-5); Neutrophil # 0.24 X10^3/uL (2.7-7.7); Neutrophil % 11.8 % (47-70); POSITIVE DIFFERENTIAL YES; POSITIVE MORPHOLOGY YES; Platelet Count 192 K/mm3 (150-450); RBC Distribution Width CV 14.9 % (11.6-14.6); Red Blood Count 3.43 M/mm3 (4.2-5.4); White Blood Count 2.1 K/mm3 (4.4-11.0)
[2022-03-11 06:16] LABS: Differential Indicated SCAN CRITERIA MET
[2022-03-11 06:40] LABS: ALB/GLOB Ratio 0.5 RATIO (0.9-2.4); AST(SGOT) 34 U/L (15-37); Alanine Aminotransfer ALT/SGPT 33 U/L (13-56); Alkaline Phosphatase 125 U/L (45-117); Anion Gap 4 (5-15); Atypical Lymphocyte RARE %; BUN 2 mg/dL (7-18); BUN/Creat Ratio 3.8 RATIO (10-20); Calcium,Total 8.5 mg/dL (8.5-10.1); Chloride 106 mmol/L (98-107); Creatinine, Serum 0.53 mg/dL (0.55-1.02); Differential Comment SCANNED; EST Glomerular Filtration Rate 123 mL/min (>60); Est Glom Filt Rate - Afr Amer 149 mL/min (>60); Globulin 4.1 g/dL (2.2-4.2); Glucose 98 mg/dL (74-106); Potassium 4.3 mmol/L (3.5-5.1); Protein, Total 6.1 g/dL (6.4-8.2); Sodium Level 137 mmol/L (136-145)
[2022-03-11 07:22] VITALS: BP 118/72; PULSE 74; RESP 18; TEMP 36.8; O2SAT 94
[2022-03-11] MEDS: Nystatin Powder 15gm Bottle 1 APPLIC TOPICAL (07:26)
[2022-03-11] MEDS: Famotidine 20 MG Tablet PO (09:59)
[2022-03-11] MEDS: Na Biphos/Potassium Phosphate PACKET 1 PACKET PO (09:59)
[2022-03-11] MEDS: Enoxaparin 40 MG/0.4 ML Syringe SC (09:59)
[2022-03-11] MEDS: Menthol/Lanolin/Calamine/Znox 113 GM Tube 1 APPLIC TOPICAL (10:00)
[2022-03-11] MEDS: TBO-FILGRASTIM 480 MCG/0.8 ML ML SC (10:00)
--- NOTE | 2022-03-11 10:02 | DCINST_ITS ---
Discharge Instructions Diet Discharge Diet: No restrictions Activity Discharge Activity: Return to Normal Activity Weight Bearing Status: Weight bearing as tolerated Follow Up Care Test Results: Test results from this visit will be discussed in further detail at your follow- up appointment, if applicable. Discharge Plan Admission Admit Date/Time: 03/08/22 00:46 Primary Reason for Your Visit: Neutropenia Attending Provider: Jolly Rocha Primary Care Provider: Care Physician,No Primary Consulting Providers: Clau Gómez ; Jenni Winn ; Warren Hardin Instructions Additional Instructions / Restrictions: Continue to keep yourself hydrated. Complete your antibiotics as prescribed Follow-up with your oncologist within a week. Discharge Orders/Prescriptions Prescriptions: New levofloxacin 500 mg Tablet 500 mg PO DAILY@0600 6 Days Qty: 6 0RF Continued pravastatin 80 mg Tablet 80 mg PO QHS montelukast 10 mg Tablet 10 mg PO QHS fluticasone furoate-vilanterol [Breo Ellipta] 100-25 mcg/dose Blister With Device 1 inh INHALATION DAILY ondansetron HCl 4 mg Tablet 4 mg PO Q8H PRN (Reason: Nausea) Referrals / Follow Up: Orion Crain DO [Med Staff - Active Staff] - In 1 Week Care Physician,No Primary [Primary Care Provider] - In 1 Week Disposition Disposition (needs filled in before D/C Order can be placed): Home, Self Care
--- NOTE | 2022-03-11 10:03 | PCM.DC.SUM ---
Providers Date of Admission: 03/08/22 Date of Discharge: 03/11/22 Primary Care Physician: No Primary Care Phys Reason For Visit: N/V/D, NEUTROPENIA Diagnosis Discharge Diagnosis (1) Nausea vomiting and diarrhea: Status: Acute Code(s): R11.2 - Nausea with vomiting, unspecified; R19.7 - Diarrhea, unspecified Plan 1. Acute gastroenteritis 2. Neutropenia 3. Hypomagnesemia/hypophosphatemia 4. Metastatic ovarian CA status post hysterectomy, lysis of adhesions 5. Severe protein calorie malnutrition Medications at Discharge Home Medications fluticasone furoate 100 mcg-vilanterol 25 mcg/dose inhalation powder (Breo Ellipta) 1 inh inhalation DAILY asthma 03/07/22 montelukast 10 mg tablet 10 mg PO QHS allergies 03/07/22 ondansetron HCl 4 mg tablet 4 mg PO Q8H PRN Nausea 03/07/22 pravastatin 80 mg tablet 80 mg PO QHS cholesterol 03/07/22 levofloxacin 500 mg tablet 500 mg PO DAILY@0600 6 days #6 tabs 03/11/22 Hospital Course Operations None Procedures None Summary of Care Provided Minutes Spent on Discharge: 40 Hospital Course: -year-old female with a recent diagnosis of metastatic ovarian CA(December 2021) status post hysterectomy with lysis of adhesions (January 28), who started chemotherapy on 03/02/22. Patient started having loose stools with nausea and vomiting. Her admitting blood work showed hypokalemia. She was admitted to the [facility] floor and managed for acute gastroenteritis likely secondary to chemotherapy. Patient was continued on IV fluids, antiemetic, electrolytes were replaced. She had pancytopenia on admission. This gradually became worse. She was started on Granix and white cell count slowly increased. Stool for enteric panel came back negative. Her white cell count at discharge was 1.2. Her absolute neutrophil count was 200. Discussed with Dr. Crain, will start patient on Levaquin 500mg daily for total of 7 days. She will follow-up with her oncologist in 1 week Physical Exam Narrative Physical exam: General: Alert, Oriented x3, Cooperative HEENT: Atraumatic Oral: Moist Mucosa Neck: Supple, med port in place Lungs: Clear to auscultation Cardiovascular: HS I+II, regular, no murmurs Abdomen: Bowel Sounds Present, Soft, Non Tender Extremities: No edema Skin: No rashes, No breakdown Neurological: Grossly intact Psych/Mental Status: Appropriate Medical Records Data Medical Nutrition Assessment Dietitian: Malnutrition Criteria Met Start: 03/08/22 11:08 Freq: Status: Active Protocol: Document 03/08/22 11:08 KAYCEE (Rec: 03/08/22 11:08 [id number]) Nutrition Malnutrition Evidence of Malnutrition Exists Yes Malnutrition (severe): Chronic Evidenced By Suboptimal Energy Intake ( Severe),Weight Loss (Severe) Clinical Problem Chronic Disease or Condition Related Malnutrition Etiology severe related to ovarian cancer with mets Signs/Symptoms as evidenced by pt consuming < 75% of estimated energy needs for >1 month and 21.9% weight loss in 4 months. Status Active Problem Recommendation Dietitian Recommendations/Changes Recommend liberalizing diet to Regular if medically able due to weight loss. Continue 120mL Ensure Clear TID with medpass Weight / BMI Weight Weight: 80.3 kg Body Mass Index (BMI) 29.5 ABG / Lab / Microbiology Data Result Diagrams: 03/11/22 05:55 03/11/22 05:55 Laboratory: Laboratory Results - last 24 hr 03/10/22 05:46: Diff Path Review Reviewed 03/10/22 11:04: WBC 1.1 L*, RBC 3.71 L, Hgb 9.6 L, Hct 30.9 L, MCV 83.3, MCH 25.9 L, MCHC 31.1 L, RDW Std Deviation 45.3 H, RDW Coeff of Alvarez 14.8 H, Plt Count 193, MPV 8.9, Immature Gran % (Auto) 0.900, Neut % (Auto) 2.7 L, Lymph % (Auto) 63.1 H, [place] % (Auto) 29.7 H, Eos % (Auto) 3.6, Baso % (Auto) 0.0, Absolute Neuts (auto) 0.0 L, Absolute Lymphs (auto) 0.70 L, Nucleated RBC % 0, Diff Path Review May , Platelet Estimate ADEQUATE, RBC Morphology NORM C+C 03/11/22 05:55: WBC 2.1 L, RBC 3.43 L, Hgb 8.7 L, Hct 28.7 L, MCV 83.7, MCH 25.4 L, MCHC 30.3 L, RDW Std Deviation 45.0 H, RDW Coeff of Alvarez 14.9 H, Plt Count 192, MPV 8.8, Immature Gran % (Auto) 0.500, Neut % (Auto) 11.8 L, Lymph % (Auto) 58.0 H, [place] % (Auto) 26.8 H, Eos % (Auto) 2.4, Baso % (Auto) 0.5, Absolute Neuts (auto) 0.2 L, Absolute Lymphs (auto) 1.19, Nucleated RBC % 0, Differential Comment SCANNED, Atypical Lymphocytes RARE 03/11/22 05:55: Sodium 137, Potassium 4.3, Chloride 106, Carbon Dioxide 27.0, Anion Gap 4 L, BUN 2 L, Creatinine 0.53 L, Estim Creat Clear Calc 46.50, Est GFR (MDRD) Af Amer 149, Est GFR (MDRD) Non-Af 123, BUN/Creatinine Ratio 3.8 L, Glucose 98, Calcium 8.5, Total Bilirubin 0.50, AST 34, ALT 33, Alkaline Phosphatase 125 H, Total Protein 6.1 L, Albumin 2.0 L, Globulin 4.1, Albumin/Globulin Ratio 0.5 L Microbiology: Microbiology 03/07/22 23:05 Urine, Clean Catch Urine Culture - Final Enterococcus faecalis 03/07/22 21:45 Blood Culture (Wb) - Right Hand Blood Culture - Preliminary No growth in 48 hours. 03/07/22 21:49 Blood Culture (Wb) - Port Blood Culture - Preliminary No growth in 48 hours. 03/08/22 17:00 Stool Enteric Bacteriology - Final 03/08/22 17:00 Stool C. difficile DNA Amplification - Final D/C Instructions Discharge Diet: No restrictions Weight Bearing Status: Weight bearing as tolerated Meaningful Use Info Meaningful Use Diagnoses (Choose all that apply): None applicable Discharge Plan Admission Admit Date/Time: 03/08/22 00:46 Primary Reason for Your Visit: Neutropenia Attending Provider: Jolly Rocha Primary Care Provider: Care Physician,No Primary Consulting Providers: Clau Gómez ; Jenni Winn ; Warren Hardin Instructions Additional Instructions / Restrictions: Continue to keep yourself hydrated. Complete your antibiotics as prescribed Follow-up with your oncologist within a week. Discharge Orders/Prescriptions Prescriptions: New levofloxacin 500 mg Tablet 500 mg PO DAILY@0600 6 Days Qty: 6 0RF Continued pravastatin 80 mg Tablet 80 mg PO QHS montelukast 10 mg Tablet 10 mg PO QHS fluticasone furoate-vilanterol [Breo Ellipta] 100-25 mcg/dose Blister With Device 1 inh INHALATION DAILY ondansetron HCl 4 mg Tablet 4 mg PO Q8H PRN (Reason: Nausea) Referrals / Follow Up: Orion Crain DO [Med Staff - Active Staff] - 03/18/22 10:15 am (Hemotology and Nutrition phone apt Mar 18 2022 1015: Lab Draw Mar 20 2022 315pm Nurse visit for port check and Breann Mar 20 2022 330pm Treatment Mar 23 2022 8am ) Care Physician,No Primary [Primary Care Provider] - In 1 Week Disposition Disposition (needs filled in before D/C Order can be placed): Home, Self Care Charges/Coding Visit Charges Inpatient E&M: 62527 Disch Hosp
[2022-03-11] MEDS: levoFLOXacin 500 MG Tablet PO (10:31)
[2022-03-11 10:43] VITALS: BP 118/74; PULSE 76; RESP 18; TEMP 37.1; O2SAT 98
[2022-03-11 13:50] LABS: Pathologist Review Reviewed
== END 2022-03-11 10:57 | disposition home or self-care (01) ==
LOC: ED 03-08 00:42 → MS3 03-08 00:55
PROVIDERS: Internal Medicine; Admitting Provider Family Medicine; Emergency Provider Emergency Medicine; Visit Provider Internal Medicine
DX: K52.9 Noninfective gastroenteritis and colitis, unspecified (principal); C79.9 Secondary malignant neoplasm of unspecified site; C56.9 Malignant neoplasm of unspecified ovary; D61.818 Other pancytopenia; E43 Unspecified severe protein-calorie malnutrition; E87.6 Hypokalemia; E87.1 Hypo-osmolality and hyponatremia; T45.1X5A Adverse effect of antineoplastic and immunosuppressive drugs, initial encounter; E78.5 Hyperlipidemia, unspecified; Z79.51 Long term (current) use of inhaled steroids; Z79.899 Other long term (current) drug therapy; J45.909 Unspecified asthma, uncomplicated; Z68.29 Body mass index [BMI] 29.0-29.9, adult
CPT/HCPCS: 36415; 36591; 71045; 80048; 80053; 80076; 81001; 83036; 83605; 83690; 83735; 84100; 85025; 87040; 87077; 87086; 87088; 87186; 87493; 87506; 93005; 94640; 96361; 96365; 96366; 96367; 96372; 96375; 96376; 97110; 97162; 97165; 97530; 97535; 97802; 99218; 99251; 99285; J7030; J7050; A4216; G0378; G0463; J1447; J2405

== ENCOUNTER 2022-03-24 09:55 | Emergency (ER) | payer MEDICARE, SELFPAY ==
[2022-03-24 09:56] VITALS: BP 120/80; PULSE 99; RESP 14; TEMP 37.2; O2SAT 97; BMI 28.8
--- NOTE | 2022-03-24 10:19 | EX.ED.GENINJ ---
HPI History of Present Illness Chief Complaint: Nausea/Vomiting Narrative Narrative: Patient presents with nausea and vomiting since yesterday. She has a history of nausea and vomiting, she is on chemotherapy but her last chemotherapy was 3 weeks ago, however she gets intermittent nausea and vomiting. She has no abdominal pain. She has no diarrhea or constipation. She has no back pain or tearing sensation no chest pain or shortness of breath. No recent fevers or chills. Her nausea has improved but she feels lightheaded. PFSH PFSH Medical History Allergic rhinitis Asthma HLD (hyperlipidemia) Ovarian cancer Overweight Home Medications fluticasone furoate 100 mcg-vilanterol 25 mcg/dose inhalation powder (Breo Ellipta) 1 inh inhalation DAILY asthma 03/07/22 [History Last Taken 03/02/22] montelukast 10 mg tablet 10 mg PO QHS allergies 03/07/22 [History Last Taken 03/02/22] ondansetron HCl 4 mg tablet 4 mg PO Q8H PRN Nausea 03/07/22 [History Last Taken 03/07/22 10:00] pravastatin 80 mg tablet 80 mg PO QHS cholesterol 03/07/22 [History Last Taken 03/02/22] levofloxacin 500 mg tablet 500 mg PO DAILY@0600 6 days #6 tabs 03/11/22 [Rx Last Taken Unknown] Allergy/AdvReac Type Severity Reaction Status Date / Time cephalexin [From Keflex] Allergy Nausea/Vom/ Verified 03/24/22 09:56 Diarrhea Family History Mother CAD (coronary artery disease) HLD (hyperlipidemia) Heart disease Father Heart disease Diabetes age 68 secondary to complicates of diabetes. Surgical History History of appendectomy History of cholecystectomy History of hysterectomy Total knee replacement status Social History household members: spouse Smoking Status: Never smoker alcohol intake: never substance use type: does not use ROS ROS ED ROS Narrative Past medical history: Reviewed, includes ovarian cancer on chemotherapy, history of neutropenia, history of nausea and vomiting Medications: Reviewed Social history: Noncontributory Review of systems: All systems negative except as indicated General: No fever. She does feel lightheaded Eyes: No visual changes ENT: No upper airway congestion, normal voice Neck: No neck pain Cardiovascular: No chest pain Respiratory: No shortness of breath or cough Gastrointestinal: As in HPI Genitourinary: No dysuria Musculoskeletal: Denies myalgias no difficulty with ambulation Skin: No rash Neurological: No memory loss, confusion or any focal weakness Psych: No recent behavioral changes Hematologic: No easy bleeding or easy bruising EXAM Physical Exam Narrative Exam Narrative: Physical exam General: Patient appears relatively comfortable in the bed. Head: Normocephalic, Atraumatic Eyes: Conjunctiva not pale ENT: Somewhat dry mucous membranes Neck: Supple, Nontender, No lymphadenopathy Cardiovascular: Regular rate, Regular rhythm Respiratory: No distress, CTA bilaterally Abdomen: Soft, Nontender, Nondistended Back: Nontender, Normal Inspection. Negative for: CVA tenderness Extremities: Nontender, No edema Skin: Normal color, No rash Neurological: Alert, Normal Strength, Normal Sensation Psychological: Normal affect Const Vital Signs: 03/24/22 09:56 Temperature 99 F Temperature Source Temporal Pulse Rate 99 Respiratory Rate 14 Blood Pressure 120/80 Blood Pressure Mean 93 Pulse Ox 97 Oxygen Delivery Method Room Air MDM MDM MDM Narrative Medical decision making narrative: Patient has a normal work-up she significantly improved, her oncologist called in antiemetics for her, otherwise I think she can be safely discharged home Lab Data Labs: Laboratory Results - last 24 hr 03/24/22 03/24/22 10:49 10:49 WBC 7.8 RBC 4.02 L Hgb 10.3 L Hct 33.7 L MCV 83.8 MCH 25.6 L MCHC 30.6 L RDW Std Deviation 52.1 H RDW Coeff of Alvarez 17.6 H Plt Count 585 H MPV 8.0 Immature Gran % (Auto) 1.000 H Neut % (Auto) 70.0 Lymph % (Auto) 16.4 L [place] % (Auto) 11.6 H Eos % (Auto) 0.5 Baso % (Auto) 0.5 Absolute Neuts (auto) 5.5 Absolute Lymphs (auto) 1.28 Nucleated RBC % 0 Sodium 134 L Potassium 3.3 L Chloride 98 Carbon Dioxide 29.0 Anion Gap 7 BUN 4 L Creatinine 0.57 Estim Creat Clear Calc 46.50 Est GFR (MDRD) Af Amer 136 Est GFR (MDRD) Non-Af 113 BUN/Creatinine Ratio 7.1 L Glucose 124 H Calcium 9.2 Magnesium 1.7 Total Bilirubin 0.50 AST 19 ALT 15 Alkaline Phosphatase 113 Total Protein 7.1 Albumin 2.6 L Globulin 4.5 H Albumin/Globulin Ratio 0.6 L Lipase 62 L Discharge Plan Triage Chief Complaint: Nausea/Vomiting ED Provider: Orion Norman Dx/Rx/DC Orders Clinical Impression: Nausea & vomiting, Dehydration Instructions: Dehydration Prescriptions: No Action pravastatin 80 mg Tablet 80 mg PO QHS montelukast 10 mg Tablet 10 mg PO QHS fluticasone furoate-vilanterol [Breo Ellipta] 100-25 mcg/dose Blister With Device 1 inh INHALATION DAILY ondansetron HCl 4 mg Tablet 4 mg PO Q8H PRN (Reason: Nausea) levofloxacin 500 mg Tablet 500 mg PO DAILY@0600 6 Days Qty: 6 0RF Primary Care Provider: Care Physician,No Primary Referrals: Care Physician,No Primary [Primary Care Provider] - 3-5 Days Disposition Disposition: Home, Self Care
[2022-03-24] MEDS: 0.9% Normal Saline 1,000 ML 1000 ML IV (10:47)
[2022-03-24] MEDS: Ondansetron 4 MG/2 ML Vial IV (10:48)
[2022-03-24 10:53] LABS: Absolute Lymphocyte Count 1.28 X10^3/uL (0.83-4.51); Absolute Neutrophil Count 5.5 X10^3/uL (2.0-7.7); Basophil# 0.04 X10^3/uL; Basophil% 0.5 % (0-1); Eosinophil# 0.04 X10^3/uL; Eosinophils% 0.5 % (0-5); Hematocrit 33.7 % (37-47); Hemoglobin 10.3 g/dL (12.0-15.0); Lymphocyte # 1.28 X10^3/ul (0.83-4.51); Lymphocyte % 16.4 % (19-41); Mean Corp Hgb Conc 30.6 g/dL (32-36); Mean Corpuscular Hgb 25.6 pg (27.0-32.0); Mean Corpuscular Volume 83.8 fL (81-99); Monocyte% 11.6 % (0-10); NRBC Flagged by Analyzer 0 % (0-5); Neutrophil # 5.45 X10^3/uL (2.7-7.7); Platelet Count 585 K/mm3 (150-450); RBC Distribution Width CV 17.6 % (11.6-14.6); RBC Distribution Width SD 52.1 fl (35.1-43.9); Red Blood Count 4.02 M/mm3 (4.2-5.4); White Blood Count 7.8 K/mm3 (4.4-11.0)
[2022-03-24 11:11] LABS: ALB/GLOB Ratio 0.6 RATIO (0.9-2.4); AST(SGOT) 19 U/L (15-37); Alanine Aminotransfer ALT/SGPT 15 U/L (13-56); Albumin, Serum 2.6 g/dL (3.2-5.0); Alkaline Phosphatase 113 U/L (45-117); Anion Gap 7 (5-15); BUN 4 mg/dL (7-18); BUN/Creat Ratio 7.1 RATIO (10-20); Calcium,Total 9.2 mg/dL (8.5-10.1); Chloride 98 mmol/L (98-107); Creatinine, Serum 0.57 mg/dL (0.55-1.02); EST Glomerular Filtration Rate 113 mL/min (>60); Est Glom Filt Rate - Afr Amer 136 mL/min (>60); Globulin 4.5 g/dL (2.2-4.2); Glucose 124 mg/dL (74-106); Lipase 62 U/L (73-393); Magnesium 1.7 mg/dL (1.6-2.6); Potassium 3.3 mmol/L (3.5-5.1); Protein, Total 7.1 g/dL (6.4-8.2); Sodium Level 134 mmol/L (136-145)
--- NOTE | 2022-03-24 11:37 | ED.RN ---
PT FEELING BETTER BUT DOES NOT WANT TO TAKE POTASSIUM PILLS AT THIS TIME. WILL TRY AGAIN SOON
[2022-03-24 12:11] VITALS: BP 120/68; PULSE 90; RESP 16; O2SAT 99
== END 2022-03-24 12:13 | disposition home or self-care (01) ==
PROVIDERS: Emergency Provider Emergency Medicine; Visit Provider Emergency Medicine
DX: R11.2 Nausea with vomiting, unspecified (principal); C56.9 Malignant neoplasm of unspecified ovary; E78.5 Hyperlipidemia, unspecified; J45.909 Unspecified asthma, uncomplicated; E66.3 Overweight; Z79.899 Other long term (current) drug therapy; Z90.49 Acquired absence of other specified parts of digestive tract; Z90.710 Acquired absence of both cervix and uterus
CPT/HCPCS: 36591; 80053; 83690; 83735; 85025; 96361; 96374; 99284; J7030; A4216; J2405

== ENCOUNTER 2022-07-24 10:43 | Inpatient (IN) | payer MEDICARE, SELFPAY ==
[2022-07-24 10:44] VITALS: BP 103/75; PULSE 93; RESP 18; TEMP 36.7; O2SAT 98; BMI 26.6
--- NOTE | 2022-07-24 11:55 | CT_ITS ---
STUDY: CT ABDOMEN AND PELVIS WITH CONTRAST REASON FOR EXAM: Female, 66 years old. History of ovarian carcinoma. Weakness and dehydration. RADIATION DOSAGE (If Supplied By Facility): CTDIvol = ( 13.59 ) mGy, DLP = ( 822.29 ) mGycm TECHNIQUE: Transaxial images were obtained from the dome of the diaphragm to the symphysis pubis without oral contrast. 100 CC ISOVUE 300 was administered. Sagittal and coronal images were reconstructed. Individualized dose optimization techniques were used for this CT. COMPARISON: None. FINDINGS: There is a 2.5 cm x 2.4 cm irregular mass in the peripheral lateral aspect of the left lower lobe. The visualized portions of the heart are within normal limits. Normal liver. There are surgical clips in the gallbladder fossa consistent with a prior cholecystectomy. Normal spleen. There is diffuse atrophy of the pancreas. Normal bilateral adrenal glands. Normal right kidney. 1 cm cyst in the medial aspect of the left kidney. There is a small hiatal hernia. Diffuse circumferential wall thickening and irregularity of the terminal ileum. Colorectal anastomosis. There is non-visualization of the appendix. There is scattered atherosclerotic calcification of the abdominal aorta, without a demonstrated aneurysm. Normal inferior vena cava. There is retroperitoneal lymphadenopathy with enlarged nodes greater than 10-15mm in the short axis. Normal urinary bladder. There is absence of the uterus consistent with a prior hysterectomy. 1.8 cm cyst in the right adnexa. Normal abdominal wall. There are diffuse degenerative changes of the visualized lumbar spine. CT/Abdomen/Pelvis WITH Contrast IMPRESSION: 2.5 cm x 2.4 cm irregular spiculated mass in the posterior aspect of the left lower lobe. Diffuse circumferential wall thickening and irregularity of the terminal ileum. Prior colorectal anastomosis. 1.8 cm cyst in the right adnexa. Electronically Signed: Otis Landis MD at 14:28 EST ,
[2022-07-24] MEDS: 0.9% Normal Saline 1,000 ML 1000 ML IV (12:07)
[2022-07-24] MEDS: Ondansetron 4 MG/2 ML Vial IV (12:07)
[2022-07-24 12:29] LABS: Absolute Lymphocyte Count 0.67 X10^3/uL (0.83-4.51); Absolute Neutrophil Count 0.8 X10^3/uL (2.0-7.7); Hematocrit 26.5 % (37-47); Hemoglobin 8.5 g/dL (12.0-15.0); Lymphocyte # 0.67 X10^3/ul (0.83-4.51); Lymphocyte % 43.2 % (19-41); Mean Corp Hgb Conc 32.1 g/dL (32-36); Mean Corpuscular Hgb 30.1 pg (27.0-32.0); Mean Platelet Vol. 9.4 fl (6.2-12.0); Monocyte# 0.11 X10^3/uL; Monocyte% 7.1 % (0-10); NRBC Flagged by Analyzer 0 % (0-5); Neutrophil # 0.76 X10^3/uL (2.7-7.7); Neutrophil % 49.1 % (47-70); POSITIVE COUNT YES; POSITIVE DIFFERENTIAL YES; Platelet Count 63 K/mm3 (150-450); RBC Distribution Width CV 13.6 % (11.6-14.6); RBC Distribution Width SD 46.5 fl (35.1-43.9); Red Blood Count 2.82 M/mm3 (4.2-5.4); White Blood Count 1.6 K/mm3 (4.4-11.0)
[2022-07-24 12:30] LABS: Differential Indicated SCAN CRITERIA MET
[2022-07-24 12:47] LABS: ALB/GLOB Ratio 0.7 RATIO (0.9-2.4); AST(SGOT) 38 U/L (15-37); Alanine Aminotransfer ALT/SGPT 25 U/L (13-56); Albumin, Serum 2.7 g/dL (3.2-5.0); Alkaline Phosphatase 96 U/L (45-117); Anion Gap 8 (5-15); BUN 8 mg/dL (7-18); BUN/Creat Ratio 13.9 RATIO (10-20); Calcium,Total 9.5 mg/dL (8.5-10.1); Chloride 98 mmol/L (98-107); Creatinine, Serum 0.58 mg/dL (0.55-1.02); EST Glomerular Filtration Rate 110 mL/min (>60); Est Glom Filt Rate - Afr Amer 134 mL/min (>60); Globulin 4.1 g/dL (2.2-4.2); Glucose 117 mg/dL (74-106); Lipase 72 U/L (73-393); Protein, Total 6.8 g/dL (6.4-8.2); Sodium Level 136 mmol/L (136-145)
[2022-07-24 13:05] LABS: Platelet Estimate MOD DEC (ADEQ)
[2022-07-24 13:55] LABS: Mucous, Urine 0 SEEN /hpf (<or=2+); Red Blood Cells-Urine 0 SEEN /hpf (0-5)
[2022-07-24 14:00] LABS: Color, Urine Yellow (Yellow); Glucose, Dipstick Normal (Normal); Ketone-Dipstick Negative (Negative); Leukocyte Esterase-Dipstick 25 /ul (Negative); Nitrite-Dipstick Negative (Negative); Occult Blood-Urine Negative /ul (Negative); Protein-Dipstick Negative (Negative); Urine Bilirubin Dipstick Negative (Negative); Urine Clarity Sl. Cloudy (Clear); Urine Urobilinogen Normal (Normal)
[2022-07-24 14:05] LABS: Squamous Epithelial Cells - UA 0-5 SEEN /hpf (5-10)
[2022-07-24 14:06] LABS: Bacteria 1+ /hpf (None Seen); White Blood Cells 0-5 SEEN /hpf (0-5)
--- NOTE | 2022-07-24 14:55 | EX.ED.DYSGE1 ---
HPI History of Present Illness Chief Complaint: Weakness Informant: patient Onset/Context/Timing Onset: Days (3) Context: Gradual Onset Timing: Continuous Quality: Nauseated, weak Location: Generalized Worsened by: Nothing Relieved by: Nothing Narrative Narrative: Patient presents with nausea, vomiting, and weakness that has been getting worse over the past 3 days. Patient states she has been feeling more weak over the last 3 days. Patient has a history of ovarian cancer and is undergoing chemotherapy for this. Patient called her oncologist who requested patient come to the emergency department. Patient denies any diarrhea. Patient denies any pain. Patient denies any shortness of breath. [facility] Medical History Allergic rhinitis Asthma HLD (hyperlipidemia) Ovarian cancer Overweight Home Medications fluticasone furoate 100 mcg-vilanterol 25 mcg/dose inhalation powder (Breo Ellipta) 1 inh inhalation DAILY asthma 03/07/22 [History Last Taken 03/02/22] montelukast 10 mg tablet 10 mg PO QHS allergies 03/07/22 [History Last Taken 03/02/22] ondansetron HCl 4 mg tablet 4 mg PO Q8H PRN Nausea 03/07/22 [History Last Taken 03/07/22 10:00] pravastatin 80 mg tablet 80 mg PO QHS cholesterol 03/07/22 [History Last Taken 03/02/22] levofloxacin 500 mg tablet 500 mg PO DAILY@0600 6 days #6 tabs 03/11/22 [Rx Last Taken Unknown] Allergy/AdvReac Type Severity Reaction Status Date / Time cephalexin [From Keflex] Allergy Nausea/Vom/ Verified 07/24/22 10:46 Diarrhea Family History Mother CAD (coronary artery disease) HLD (hyperlipidemia) Heart disease Father Heart disease Diabetes age 68 secondary to complicates of diabetes. Surgical History History of appendectomy History of cholecystectomy History of hysterectomy Total knee replacement status Social History household members: spouse Smoking Status: Never smoker alcohol intake: never substance use type: does not use ROS ROS ED Constitutional Constitutional ED: Denies chills or fever(s) Eyes Eyes: Denies blurry vision or change in vision ENT ENT ED: Denies rhinorrhea or sore throat Cardiovascular Cardiovascular: Denies chest pain or palpitations Respiratory/Chest Respiratory/Chest: Denies cough or dyspnea Gastrointestinal Gastrointestinal: Reports nausea and vomiting; Denies abdominal pain Genitourinary Genitourinary ED: Denies dysuria or hematuria Musculoskeletal Musculoskeletal: Denies back pain or neck pain Integumentary Denies abscess or rash Neurologic Neurologic: Denies headache(s) or weakness Allergic/Immunologic Allergic/Immunologic ED: Denies mouth swelling or urticaria EXAM Physical Exam Const Vital Signs: 07/24/22 10:44 07/24/22 11:00 07/24/22 15:18 Temperature 98.1 F Temperature Source Temporal Pulse Rate 93 81 Respiratory Rate 18 14 Respiratory Effort Normal Non-Labored Respiratory Pattern Normal Blood Pressure 103/75 121/73 H Blood Pressure Mean 84 89 Pulse Ox 98 Oxygen Delivery Method Room Air Positive well nourished and well developed General Appearance ED: well developed and NAD HEENT Reports moist mucous membranes Neck supple and no JVD Resp normal respiratory effort and clear to auscultation bilaterally Cardio regular rate, regular rhythm and no murmurs GI normal to inspection, nondistended, normoactive bowel sounds Palpation: soft and tender epigastric, LLQ, RLQ, LUQ, RUQ, periumbilical and suprapubic Extremity normal to inspection General Extremety ED: Negative for edema or tenderness General Extremity: Negative for edema Neuro oriented x3, CN's II-XII intact bilaterally and no sensory deficits noted Sensorium / Orientation: alert Motor Exam: strength 5/5 throughout Psych mental status grossly normal Skin no rashes or lesions noted MDM MDM MDM Narrative Medical decision making narrative: Patient was given IV fluids and Zofran. CBC was obtained and was reviewed. White blood cell count was 1.6 with an absolute neutrophil count of 0.8. Hemoglobin was 8.5 and hematocrit was 26.5. Platelets were 63. Comprehensive metabolic profile was obtained and was reviewed. There is a mild hypokalemia of 3.0. Patient was given a dose of oral potassium here. Glucose was 117. AST was slightly elevated at 38 but the remainder was within normal limits. Lipase was 72. Urinalysis was obtained and was reviewed. There is no evidence of urinary tract infection or hematuria. CT scan of the abdomen and pelvis was obtained with oral and IV contrast. There is a 2.5 x 2.4 cm spiculated mass in the posterior aspect of the right lower lobe. There is diffuse circumferential wall thickening and irregularity of the terminal ileum. There is a prior colorectal anastomosis. There is a 1.8 cm cyst in the right adnexa. This was interpreted by the radiologist and reviewed by myself. Patient was advised of her findings. Case was discussed with Dr. Crain. He reviewed the CT scan and was concerned that the circumferential thickening of the ileum could be a bacterial enteritis. He recommended starting the patient on broad-spectrum antibiotics and admitting the patient to the hospital. Patient was started on Zosyn. Case was discussed with the hospitalist. She will admit the patient to her service. Patient and family understood and were agreeable with the plan. All questions were answered. Lab Data Attestation: I reviewed the patient's lab results. Labs: Laboratory Results - last 24 hr 07/24/22 07/24/22 07/24/22 11:20 11:20 13:40 WBC 1.6 L RBC 2.82 L Hgb 8.5 L Hct 26.5 L MCV 94.0 MCH 30.1 MCHC 32.1 RDW Std Deviation 46.5 H RDW Coeff of Alvarez 13.6 Plt Count 63 L MPV 9.4 Immature Gran % (Auto) 0.600 Neut % (Auto) 49.1 Lymph % (Auto) 43.2 H [place] % (Auto) 7.1 Eos % (Auto) 0.0 Baso % (Auto) 0.0 Absolute Neuts (auto) 0.8 L Absolute Lymphs (auto) 0.67 L Nucleated RBC % 0 Differential Comment COMMENT Platelet Estimate MOD DEC Sodium 136 Potassium 3.0 L Chloride 98 Carbon Dioxide 30.0 Anion Gap 8 BUN 8 Creatinine 0.58 Estim Creat Clear Calc 46.50 Est GFR (MDRD) Af Amer 134 Est GFR (MDRD) Non-Af 110 BUN/Creatinine Ratio 13.9 Glucose 117 H Calcium 9.5 Total Bilirubin 0.40 AST 38 H ALT 25 Alkaline Phosphatase 96 Total Protein 6.8 Albumin 2.7 L Globulin 4.1 Albumin/Globulin Ratio 0.7 L Lipase 72 L Urine Color Yellow Urine Clarity Sl. Cloudy Urine pH 7.0 Ur Specific [place] 1.010 Urine Protein Negative Urine Glucose (UA) Normal Urine Ketones Negative Urine Occult Blood Negative Urine Nitrite Negative Urine Bilirubin Negative Urine Urobilinogen Normal Ur Leukocyte Esterase 25 H Urine RBC 0 SEEN Urine WBC 0-5 SEEN Ur Squamous Epith Cells 0-5 SEEN Urine Bacteria 1+ Urine Mucus 0 SEEN Radiography Diagnostic Testing: Clinical Impression(s) from Imaging Studies Abdomen/Pelvis CT 07/24/22 11:55 IMPRESSION: 2.5 cm x 2.4 cm irregular spiculated mass in the posterior aspect of the left lower lobe. Diffuse circumferential wall thickening and irregularity of the terminal ileum. Prior colorectal anastomosis. 1.8 cm cyst in the right adnexa. Electronically Signed: Otis Landis MD at 14:28 EST , Discharge Plan Dx/Rx/DC Orders Clinical Impression: General weakness, Neutropenia, Hypokalemia Disposition Disposition: Acute Care [facility]
[2022-07-24 15:18] VITALS: BP 121/73; PULSE 81; RESP 14
--- NOTE | 2022-07-24 16:32 | PCM.HP.STD ---
HPI - General General Date of Admission: 07/24/22 Date of Service: 07/24/22 Chief Complaint: Fatigue, malaise, nausea. HPI Narrative The patient is a 66 y/o F w/ PMHx: HLD, Allergic rhinitis, Asthma, Diagnosis 12/2021 Ovarian CA s/p hysterectomy with GABBY 01/2022 with reportedly diffusely metastatic cancer following w/ Dr. Crain who presents to the [facility] ED on 07/24/22 per Oncology recommendation secondary to worsening fatigue, malaise, nausea with concerns for dehydration. Work-up in the ED included T98.1, heart rate 93, BP 103/75, respiratory rate 18, 98% on room air, CBC with WBC 1.6, hemoglobin 8.5, platelets 63 with ANC 0.8 and also lymphopenia, CMP with potassium 3.0, glucose 117, AST mildly elevated 38 otherwise hepatic profile not marked appearing, lipase 72, urinalysis with nitrite negative, leukocyte Estrace 25 with 0-5 urine WBCs with 1+ urine bacteria, specific gravity 1.010 despite recent concerns for dehydration, CT abdomen pelvis with a 2.5 cm x 2.4 cm irregular spiculated mass in the posterior aspect the left lower lobe, diffuse sequential wall thickening and irregularity of the terminal ileum, prior colorectal anastomosis evident, 1.8 cm cyst in the right adnexa. In the ED patient ministered IV Zosyn, Zofran as well as 40 mill equivalent p.o. x1 in addition to Zofran. Upon patient presentation did review the case with patient's oncologist and agreed with transient usage of IV Zosyn although abdominal examination not severe but given the CT findings coupled with neutropenia to be cautious plan continuation of IV antibiotic therapy, additionally given neutropenia planned initiation of Granix. [facility] Medical History (Updated 07/24/22 @ 19:[address] Clau Gómez MD) Allergic rhinitis Asthma HLD (hyperlipidemia) Neuropathy Ovarian cancer Overweight Home Medications fluticasone furoate 100 mcg-vilanterol 25 mcg/dose inhalation powder (Breo Ellipta) 1 inh inhalation DAILY asthma 03/07/22 [History Last Taken 07/23/22] montelukast 10 mg tablet 10 mg PO QHS allergies 03/07/22 [History Last Taken 07/23/22] pravastatin 80 mg tablet 80 mg PO QHS cholesterol 03/07/22 [History Last Taken 07/23/22] apixaban 5 mg tablet (Eliquis) 5 mg PO BID 07/24/22 [History Last Taken 07/24/22] cetirizine 10 mg tablet 10 mg PO DAILY ALLERGIES 07/24/22 [History Last Taken 07/23/22] gabapentin 300 mg capsule 600 - 900 mg PO BID 07/24/22 [History Last Taken 07/23/22] pantoprazole 40 mg tablet,delayed release 40 mg PO DAILY GERD 07/24/22 [History Last Taken 07/23/22] promethazine 25 mg tablet 25 mg PO Q6H PRN Nausea 07/24/22 [History Last Taken 07/23/22] Allergy/AdvReac Type Severity Reaction Status Date / Time cephalexin [From Keflex] Allergy Nausea/Vom/ Verified 07/24/22 10:46 Diarrhea Family History Mother CAD (coronary artery disease) HLD (hyperlipidemia) Heart disease Father Heart disease Diabetes age 68 secondary to complicates of diabetes. Surgical History (Updated 07/24/22 @ 18:06 by Xin Robles) History of appendectomy History of cholecystectomy History of hysterectomy History of intestinal surgery Total knee replacement status Social History household members: spouse Smoking Status: Never smoker alcohol intake: never substance use type: does not use ROS ROS Narrative Admission Review of Systems: CONSTITUTIONAL: No weight loss, fever, chills, + weakness or fatigue. HEENT: Eyes: No visual loss, blurred vision, double vision or yellow sclerae. Ears, Nose, Throat: No hearing loss, sneezing, congestion, runny nose or sore throat. SKIN: No rash or itching, lesions, wounds. CARDIOVASCULAR: No chest pain, chest pressure or chest discomfort, palpitations, edema, orthopnea, syncopal events. RESPIRATORY: No shortness of breath, cough or sputum, wheezing, hemoptysis. GASTROINTESTINAL: + anorexia, nausea, No vomiting, diarrhea, marked abdominal pain, melena, BRBPR. GENITOURINARY: No dysuria, frequency, urgency or retention. NEUROLOGICAL: No headache, dizziness, syncope, paralysis, ataxia, numbness or tingling in the extremities, focal weakness, change in bowel or bladder control, seizure. MUSCULOSKELETAL: + muscle, back pain, joint pain or stiffness. HEMATOLOGIC: + anemia, bleeding or bruising. LYMPHATICS: No enlarged nodes. No history of splenectomy. PSYCHIATRIC: No history of depression or anxiety. ENDOCRINOLOGIC: No reports of sweating, cold or heat intolerance. No polyuria or polydipsia. ALLERGIES: + history of asthma, rhinitis. Vital Signs Vital Signs Vital Signs: 07/24/22 10:44 07/24/22 11:00 07/24/22 15:18 Temperature 98.1 F Temperature Source Temporal Pulse Rate 93 81 Respiratory Rate 18 14 Respiratory Effort Normal Non-Labored Respiratory Pattern Normal Blood Pressure 103/75 121/73 H Blood Pressure Mean 84 89 Pulse Ox 98 Oxygen Delivery Method Room Air Weight Weight: 155 lb Body Mass Index (BMI) 26.6 Physical Exam Narrative Physical Examination: General: Awake, alert, oriented x 3 and cooperative, seated upright in ED bed, fatigued appearing. Skin: Normal color, normal turgor, no icterus, no cyanosis except for various excoriations including the face, abrasions, staged ecchymoses. HEENT: AT/NC, EOMI, PERRLA, dry MM, no carotid bruits or JVD noted. Lungs: Mildly diminished, greater bases, appropriate effort, no rales, ronchi or wheezing. Heart: Regular rate and rhythm; no gallop, rub audible. Abdomen: Soft, overweight, NTTP no rebound or guarding, ND, mildly hyperactive BS, no HSM. Extremities: No cyanosis, clubbing, or edema. Neurological: Patient awake, alert, oriented as noted, cognitive function baseline intact; pupils equally reactive to light and accommodation, cranial nerves II-XII grossly normal, moving all 4 extremities, no focal deficits, strength moderately globally decreased secondary to acute presentation. Psychiatric: Affect appears fatigued, flat, no acute evidence of depressive or anxiety feelings. Results Lab / Micro Data Result Diagrams: 07/24/22 11:20 07/24/22 11:20 Labs: Laboratory Results - last 24 hr 07/24/22 11:20: WBC 1.6 L, RBC 2.82 L, Hgb 8.5 L, Hct 26.5 L, MCV 94.0, MCH 30.1, MCHC 32.1, RDW Std Deviation 46.5 H, RDW Coeff of Alvarez 13.6, Plt Count 63 L, MPV 9.4, Immature Gran % (Auto) 0.600, Neut % (Auto) 49.1, Lymph % (Auto) 43.2 H, [place] % (Auto) 7.1, Eos % (Auto) 0.0, Baso % (Auto) 0.0, Absolute Neuts (auto) 0.8 L, Absolute Lymphs (auto) 0.67 L, Nucleated RBC % 0, Differential Comment COMMENT, Platelet Estimate MOD 07/24/22 11:20: Sodium 136, Potassium 3.0 L, Chloride 98, Carbon Dioxide 30.0, Anion Gap 8, BUN 8, Creatinine 0.58, Estim Creat Clear Calc 46.50, Est GFR (MDRD) Af Amer 134, Est GFR (MDRD) Non-Af 110, BUN/Creatinine Ratio 13.9, Glucose 117 H, Calcium 9.5, Total Bilirubin 0.40, AST 38 H, ALT 25, Alkaline Phosphatase 96, Total Protein 6.8, Albumin 2.7 L, Globulin 4.1, Albumin/Globulin Ratio 0.7 L, Lipase 72 L 07/24/22 13:40: Urine Color Yellow, Urine Clarity Sl. Cloudy, Urine pH 7.0, Ur Specific [place] 1.010, Urine Protein Negative, Urine Glucose (UA) Normal, Urine Ketones Negative, Urine Occult Blood Negative, Urine Nitrite Negative, Urine Bilirubin Negative, Urine Urobilinogen Normal, Ur Leukocyte Esterase 25 H, Urine RBC 0 SEEN, Urine WBC 0-5 SEEN, Ur Squamous Epith Cells 0-5 SEEN, Urine Bacteria 1+, Urine Mucus 0 SEEN Radiology Impression Abdomen/Pelvis CT 07/24/22 11:55 IMPRESSION: 2.5 cm x 2.4 cm irregular spiculated mass in the posterior aspect of the left lower lobe. Diffuse circumferential wall thickening and irregularity of the terminal ileum. Prior colorectal anastomosis. 1.8 cm cyst in the right adnexa. Electronically Signed: Otis Landis MD at 14:28 EST , Assessment & Plan Assessment/Plan (1) Enteritis: PLAN: Plan The patient is a 66 y/o F w/ PMHx: HLD, Allergic rhinitis, Asthma, Diagnosis 12/2021 Ovarian CA s/p hysterectomy with GABBY 01/2022 with reportedly diffusely metastatic cancer following w/ Dr. Crain who presents to the [facility] ED on 07/24/22 per Oncology recommendation secondary to worsening fatigue, malaise, nausea with concerns for dehydration. #1. Diffuse sequential wall thickening/irregularity terminal ileum, concern for enteritis: Will admit to [facility], will maintain on aggressive hydration, monitor I&Os, maintain NPO status w/ bowel rest, treat with zosyn regimen, IV PPI, anti-emetics, pain regimen PRN. Consider diet advancement to clears in AM if clinically improved. #2. Lymphopenia, neutropenia, normocytic anemia secondary to underlying metastatic Ovarian cancer and recent chemotherapy with high risk VTE: Admission CBC with WBC 1.6, hemoglobin 8.5, platelets 63 with ANC 0.8 and also lymphopenia, continue to maintain on neutropenic precautions be cautious, repeat CBC in AM, mag and phos levels requested given recent chemotherapy. We will continue patient home apixaban regimen. Will initiate on IV granix daily until neutropenia improves. Discussed case with Dr. Crain and he is amenable to the plan of care. He notes likely once she improves he will refer for EGD to be cautious. Will not obtain consult at this time but if necessary may add. #3. Hypokalemia: Admission K+ 3.4, magnesium and phosphorus levels pending as noted above, supplementation given, repeat level in AM. #4. Chronic Asthma w/ Allergic rhinitis: We will temporarily hold patient home inhalers and in the interim transition to ATC DuoNeb therapies, PRN albuterol, HOB, IS parameters, continue patient home montelukast as well as cetirizine regimen. #5. Hyperlipidemia: We will continue patient on statin therapy. #6. GERD: We will maintain on PPI as noted #7. DVT prophylaxis: SCDs, cautiously continue patient home apixaban regimen and continue to monitor. #8. CODE status: Patient HCPOA is her and her daughter is secondary and living will is currently in place. Requested continuation of full Code status. Admission Evaluation Time spent evaluating chart, patient history, patient evaluation, care planning and discussion with specialists: 76 minutes. Charges/Coding Visit Charges Inpatient E&M: 86867 Init Hosp L3
[2022-07-24] MEDS: Potassium Chloride Oral Tablet 20 MEQ 40 MEQ PO (16:50)
[2022-07-24 17:03] VITALS: BP 129/78; PULSE 79; RESP 16; TEMP 36.6; O2SAT 98
[2022-07-24] MEDS: Gabapentin 600 MG Tablet PO (17:06)
[2022-07-24 18:08] VITALS: BMI 26.2
[2022-07-24 18:20] LABS: Magnesium 1.5 mg/dL (1.6-2.6); Phosphorus 3.3 mg/dL (2.5-4.9)
[2022-07-24] MEDS: 0.9% Normal Saline 1,000 ML 125 ML IV (18:44)
[2022-07-24 20:01] VITALS: PULSE 96; RESP 16; O2SAT 94
[2022-07-24] MEDS: Ipratropium/Albuterol Sulfate 3 ML AMPUL.NEB INHALATION (20:01)
[2022-07-24 20:13] VITALS: BP 103/73; PULSE 79; RESP 18; TEMP 37.1; O2SAT 98
[2022-07-24] MEDS: Montelukast 10 MG Tablet PO (20:26)
[2022-07-24] MEDS: Pravastatin 80 MG Tablet PO (20:26)
[2022-07-24] MEDS: Gabapentin 300 MG Capsule 900 MG PO (20:26)
[2022-07-24] MEDS: APIXABAN 5 MG TABLET PO (20:26)
[2022-07-24] MEDS: TBO-FILGRASTIM 480 MCG/0.8 ML ML SC (20:58)
[2022-07-25] VITALS (7 sets, daily range): BP systolic 104–122; BP diastolic 71–76; PULSE 70–82; RESP 18; TEMP 36.8–37.4; O2SAT 93–98
[2022-07-25] MEDS: MELATONIN 3 MG TABLET PO ×2 (01:29→21:18)
[2022-07-25] MEDS: 0.9% Normal Saline 1,000 ML 125 ML IV (01:29)
[2022-07-25] MEDS: Pramipexole Di-HCl 0.125 MG Tablet PO ×2 (03:14→21:17)
[2022-07-25 06:22] LABS: Absolute Lymphocyte Count 0.75 X10^3/uL (0.83-4.51); Absolute Neutrophil Count 1.3 X10^3/uL (2.0-7.7); Hematocrit 24.3 % (37-47); Hemoglobin 7.5 g/dL (12.0-15.0); Lymphocyte # 0.75 X10^3/ul (0.83-4.51); Lymphocyte % 34.1 % (19-41); Mean Corp Hgb Conc 30.9 g/dL (32-36); Mean Corpuscular Hgb 29.5 pg (27.0-32.0); Mean Corpuscular Volume 95.7 fL (81-99); Monocyte# 0.12 X10^3/uL; Monocyte% 5.5 % (0-10); NRBC Flagged by Analyzer 0 % (0-5); POSITIVE COUNT YES; RBC Distribution Width CV 13.6 % (11.6-14.6); RBC Distribution Width SD 46.6 fl (35.1-43.9); Red Blood Count 2.54 M/mm3 (4.2-5.4); White Blood Count 2.2 K/mm3 (4.4-11.0)
[2022-07-25] MEDS: Ondansetron 4 MG/2 ML Vial IV ×2 (06:22→13:44)
[2022-07-25 06:43] LABS: ALB/GLOB Ratio 0.7 RATIO (0.9-2.4); AST(SGOT) 32 U/L (15-37); Alanine Aminotransfer ALT/SGPT 21 U/L (13-56); Albumin, Serum 2.5 g/dL (3.2-5.0); Alkaline Phosphatase 86 U/L (45-117); Anion Gap 7 (5-15); BUN 6 mg/dL (7-18); BUN/Creat Ratio 11.7 RATIO (10-20); Calcium,Total 8.7 mg/dL (8.5-10.1); Chloride 106 mmol/L (98-107); Creatinine, Serum 0.51 mg/dL (0.55-1.02); EST Glomerular Filtration Rate 126 mL/min (>60); Est Glom Filt Rate - Afr Amer 153 mL/min (>60); Globulin 3.5 g/dL (2.2-4.2); Glucose 98 mg/dL (74-106); Potassium 3.3 mmol/L (3.5-5.1); Sodium Level 139 mmol/L (136-145)
[2022-07-25 06:57] LABS: Platelet Count 49 K/mm3 (150-450)
--- NOTE | 2022-07-25 07:31 | PCM.PN.HOSP ---
Subjective Subjective Follow-up for chemotherapy induced adverse effect of nausea vomiting, electrolyte abnormality and generalized weakness. Objective Data Objective Data Vital Signs: Vital Signs Temp Pulse Resp BP Pulse Ox O2 Del Method 98.8 F 72 18 122/76 H 95 Room Air 07/25/22 06:23 07/25/22 06:23 07/25/22 06:23 07/25/22 06:23 07/25/22 06:23 07/25/22 06:23 Oxygen Delivery Method Room Air Weight: 152 lb 12.485 oz Body Mass Index (BMI) 26.2 Intake & Output: Intake and Output for Last 24 Hours 07/23/22 07/24/22 07/25/22 23:59 23:59 23:59 Intake Total 1210 / 1210 893.75 / 893.75 Balance 1210 / 1210 893.75 / 893.75 Lab / Micro Data Result Diagrams: 07/25/22 05:58 07/25/22 05:58 Labs: Laboratory Results - last 24 hr 07/24/22 11:20: WBC 1.6 L, RBC 2.82 L, Hgb 8.5 L, Hct 26.5 L, MCV 94.0, MCH 30.1, MCHC 32.1, RDW Std Deviation 46.5 H, RDW Coeff of Alvarez 13.6, Plt Count 63 L, MPV 9.4, Immature Gran % (Auto) 0.600, Neut % (Auto) 49.1, Lymph % (Auto) 43.2 H, Kenton % (Auto) 7.1, Eos % (Auto) 0.0, Baso % (Auto) 0.0, Absolute Neuts (auto) 0.8 L, Absolute Lymphs (auto) 0.67 L, Nucleated RBC % 0, Differential Comment COMMENT, Platelet Estimate MOD DEC 07/24/22 11:20: Sodium 136, Potassium 3.0 L, Chloride 98, Carbon Dioxide 30.0, Anion Gap 8, BUN 8, Creatinine 0.58, Estim Creat Clear Calc 46.50, Est GFR (MDRD) Af Amer 134, Est GFR (MDRD) Non-Af 110, BUN/Creatinine Ratio 13.9, Glucose 117 H, Calcium 9.5, Total Bilirubin 0.40, AST 38 H, ALT 25, Alkaline Phosphatase 96, Total Protein 6.8, Albumin 2.7 L, Globulin 4.1, Albumin/Globulin Ratio 0.7 L, Lipase 72 L 07/24/22 11:20: Phosphorus 3.3, Magnesium 1.5 L 07/24/22 13:40: Urine Color Yellow, Urine Clarity Sl. Cloudy, Urine pH 7.0, Ur Specific Durham 1.010, Urine Protein Negative, Urine Glucose (UA) Normal, Urine Ketones Negative, Urine Occult Blood Negative, Urine Nitrite Negative, Urine Bilirubin Negative, Urine Urobilinogen Normal, Ur Leukocyte Esterase 25 H, Urine RBC 0 SEEN, Urine WBC 0-5 SEEN, Ur Squamous Epith Cells 0-5 SEEN, Urine Bacteria 1+, Urine Mucus 0 SEEN 07/25/22 05:58: WBC 2.2 L, RBC 2.54 L, Hgb 7.5 L, Hct 24.3 L, MCV 95.7, MCH 29.5, MCHC 30.9 L, RDW Std Deviation 46.6 H, RDW Coeff of Alvarez 13.6, Plt Count 49 L*, MPV 9.0, Immature Gran % (Auto) 1.400 H, Neut % (Auto) 59.0, Lymph % (Auto) 34.1, Kenton % (Auto) 5.5, Eos % (Auto) 0.0, Baso % (Auto) 0.0, Absolute Neuts (auto) 1.3 L, Absolute Lymphs (auto) 0.75 L, Nucleated RBC % 0, Diff Path Review November07/25/22 05:58: Sodium 139, Potassium 3.3 L, Chloride 106, Carbon Dioxide 26.0, Anion Gap 7, BUN 6 L, Creatinine 0.51 L, Estim Creat Clear Calc 46.50, Est GFR (MDRD) Af Amer 153, Est GFR (MDRD) Non-Af 126, BUN/Creatinine Ratio 11.7, Glucose 98, Calcium 8.7, Total Bilirubin 0.50, AST 32, ALT 21, Alkaline Phosphatase 86, Total Protein 6.0 L, Albumin 2.5 L, Globulin 3.5, Albumin/Globulin Ratio 0.7 L Radiography Diagnostic Testing: Radiology Impression Abdomen/Pelvis CT 07/24/22 11:55 IMPRESSION: 2.5 cm x 2.4 cm irregular spiculated mass in the posterior aspect of the left lower lobe. Diffuse circumferential wall thickening and irregularity of the terminal ileum. Prior colorectal anastomosis. 1.8 cm cyst in the right adnexa. Electronically Signed: Otis Landis MD at 14:28 EST , Physical Exam Narrative Seen and examined. General: Alert, Oriented x3, Cooperative, dehydrated HEENT: Atraumatic, PERRLA, EOMI, Normocephalic Oral: Oral mucosa very dry. No Gingival or Mucosal Lesions/ Ulcerations Neck: Supple, No JVD, Negative Carotid Bruits Chest wall/lungs: Left upper chest Mediport. Air entry diminished in bilateral lung bases. No crepitation/rhonchi Cardiovascular: Regular rate, Regular Rhythm, Normal S1, Normal S2, systolic murmur cardiac apex and LV Abdomen: Bowel Sounds Present, Soft, Non Tender, Non-Distended : Dark cloudy urine. No renal angle tenderness. No suprapubic tenderness. Extremities: No edema, Capillary Refill Less than 3 Seconds Skin: No rashes, No breakdown Musculoskeletal: No Tenderness to Palpation of Joints or Extremities, muscle strength 4+/5 at major joints. Neurological: Cranial nerves II-XII grossly intact, DTR 2+/4 and Symmetrical, Neuro grossly intact Psych/Mental Status: Flat affect. Assessment & Plan Assessment/Plan (1) Enteritis: PLAN: Plan The patient is a 66 y/o F was admitted with nausea, vomiting, generalized weakness getting worse over past 3 days. Patient history of ovarian cancer, undergoing chemotherapy under Dr. Crain. #1. Diffuse sequential wall thickening/irregularity terminal ileum, concern for enteritis: Patient is admitted to [place], on aggressive hydration, monitor I&Os, treat with zosyn regimen, IV PPI, anti-emetics, pain regimen PRN. Consider diet advancement to clears in AM if clinically improved. 07/25: Clear liquid is started. Advance as per tolerated. Patient nausea and vomiting controlled with Phenergan and Zofran. #2. Lymphopenia, neutropenia, normocytic anemia secondary to underlying metastatic Ovarian cancer and recent chemotherapy with high risk VTE: Admission CBC with WBC 1.6, hemoglobin 8.5, platelets 63 with ANC 0.8 and also lymphopenia. Patient anemia is normocytic normochromic anemia, probably due to neoplasm/chemotherapy. Continue patient home apixaban regimen. On granix daily until neutropenia improves. Discussed case with Dr. Crain and he is amenable to the plan of care. Dr. Crain suggested EGD may be outpatient if she is stable. #3. Hypokalemia: Admission K+ 3.4,Hypomagnesemia, Mg 1.5. Phosphorus level normal. Electrolytes getting replaced. #4. Chronic Asthma w/ Allergic rhinitis: On ATC DuoNeb therapi IS parameters, continue patient home montelukast as well as cetirizine regimen. #5. Hyperlipidemia: continue patient on statin therapy. #6. GERD: We will maintain on PPI as noted #7. DVT prophylaxis: SCDs, morning monitor CBC daily as patient is on Eliquis 5 mg twice daily. #8. CODE status: Patient ROBER is her and her daughter is secondary and living will is currently in place. Requested continuation of full Code status. Total time of the visit including total time spent in counseling or coordination of care, (more than 50% of the total time, spent in obtaining medical information from nurses and other ancillary care providers,explaining to the patient about labs, imaging, diagnosis and management of active complex medical conditions), management of complex medical problem, review of labs and imaging is 40 minutes. Charges/Coding Visit Charges Inpatient E&M: 78074 [facility] Hosp L3
[2022-07-25] MEDS: Ipratropium/Albuterol Sulfate 3 ML AMPUL.NEB INHALATION ×3 (07:33→19:24)
[2022-07-25] MEDS: proMETHazine 25 MG/ML Syringe IM ×2 (07:58→16:28)
[2022-07-25] MEDS: Lactated Ringers 1,000 ML 100 ML IV ×2 (08:03→18:20)
[2022-07-25] MEDS: Potassium Chloride Oral Tablet 20 MEQ 40 MEQ PO ×2 (08:11→11:17)
[2022-07-25] MEDS: Loratadine 10 MG Tablet PO (08:19)
[2022-07-25] MEDS: APIXABAN 5 MG TABLET PO ×2 (08:19→21:17)
[2022-07-25] MEDS: Gabapentin 300 MG Capsule 900 MG PO ×2 (08:19→21:23)
[2022-07-25] MEDS: TBO-FILGRASTIM 480 MCG/0.8 ML ML SC (08:20)
[2022-07-25] MEDS: Morphine 2 MG/ML Syringe IV (08:37)
--- NOTE | 2022-07-25 16:45 | CASEMGMT ---
FANTASMA NARANJO DC Planning Assessment: Face to Face with patient for initial transition planning/care coordination assessment. FANTASMA NARANJO introduced self and role at [facility], pt voices understanding. Pt alert, oriented x4, and agreeable to participating in the assessment with her spouse at the bedside. Care providers, pharmacy, and demographics verified. Admitting Dx: enteritis, n/v, hypoK PCP: Donita Specialists: Breann (oncology) as well as [facility] main [place] team Preferred Pharmacy: [facility] Insurance: [employer] [facility] Prescription Benefit: Yes Living Will/HPOA: Yes, HPOA: spouse Ras, daughter Veronica LNOK: spouse Ras, children Living Arrangements: Pt Lives in a two story home with a first floor set-up with 3 steps with a handrail to enter. Pt states she does have some difficulty with the steps and takes them slowly using the handrail and her cane. PT is independent with ADLs and can do some cooking. Family assists with all other household tasks. Transportation: Pt does not drive but family transports DME: cane, walker, raised toilet seat with bilat handles, shower chair (is not currently using), grab bars, Pt sleeps in her recliner but has a siderail on her regular bed to assist with getting up. Pt states they have access to additional DME if needed through a lending closet in [place]. SNF/HHC: denies previous providers Plan: Pt plans to return home at discharge with the support of her family. Pt denies any discharge needs at this time. Will continue to follow pt's progress in therapy and facilitate any discharge needs as identified. Lexis Dutta RN CM
[2022-07-25] MEDS: Pravastatin 80 MG Tablet PO (21:17)
[2022-07-25] MEDS: Montelukast 10 MG Tablet PO (21:18)
[2022-07-26] VITALS (7 sets, daily range): BP systolic 91–117; BP diastolic 62–77; PULSE 68–78; RESP 16–18; TEMP 36.9–37.1; O2SAT 94–99
[2022-07-26] MEDS: Ondansetron 4 MG/2 ML Vial IV ×2 (02:26→08:58)
[2022-07-26] MEDS: 0.9% Saline Lock 10 ML Syringe IV (08:58)
[2022-07-26] MEDS: Gabapentin 300 MG Capsule 900 MG PO ×2 (09:01→22:15)
[2022-07-26] MEDS: APIXABAN 5 MG TABLET PO (09:02)
[2022-07-26] MEDS: Loratadine 10 MG Tablet PO (09:02)
[2022-07-26] MEDS: TBO-FILGRASTIM 480 MCG/0.8 ML ML SC (09:03)
--- NOTE | 2022-07-26 10:34 | PCM.PN.HOSP ---
Subjective Subjective Follow-up for chemotherapy induced gastroenteritis/mucositis. Patient is still has nausea no better than yesterday diarrhea is better. No fever. T-max 99.3 Fahrenheit last night. Objective Data Objective Data Vital Signs: Vital Signs Temp Pulse Resp BP Pulse Ox O2 Del Method 98.7 F 70 16 111/69 97 Room Air 07/26/22 05:00 07/26/22 05:00 07/26/22 05:00 07/26/22 05:00 07/26/22 05:00 07/26/22 05:00 Oxygen Delivery Method Room Air Weight: 154 lb Body Mass Index (BMI) 26.2 Intake & Output: Intake and Output for Last 24 Hours 07/24/22 07/25/22 07/26/22 23:59 23:59 23:59 Intake Total 1210 / 1210 3317.75 / 3317.75 1270 / 1270 Output Total 300 / 300 300 / 300 Balance 1210 / 1210 3017.75 / 3017.75 970 / 970 Medical Nutrition Assessment Dietitian: Malnutrition Criteria Met Start: 07/25/22 12:56 Freq: Status: Active Protocol: Document 07/25/22 12:56 LO (Rec: 07/25/22 12:56 [id number]) Nutrition Malnutrition Evidence of Malnutrition Exists Yes Malnutrition (severe): Chronic Evidenced By Suboptimal Energy Intake ( Severe),Weight Loss (Severe) Clinical Problem Chronic Disease or Condition Related Malnutrition Etiology severe related to ovarian cancer with mets Signs/Symptoms as evidenced by <75% intake of estimated energy needs for >1 month and 24.4lbs (13.7%) weight loss in ~4.5 months Status Active Problem Recommendation Dietitian Recommendations/Changes ADAT to Low Fiber when medically able to manage medical conditions. Recommend Magic Cup BID with lunch and dinner as appropriate when diet advances to provide supplemental energy. Lab / Micro Data Result Diagrams: 07/25/22 05:58 07/25/22 05:58 Physical Exam Narrative Seen and examined. General: Alert, Oriented x3, Cooperative, dehydrated HEENT: Atraumatic, PERRLA, EOMI, Normocephalic Oral: Oral mucosa moist. No Gingival or Mucosal Lesions/ Ulcerations Neck: Supple, No JVD, Negative Carotid Bruits Chest wall/lungs: Left upper chest Mediport. Air entry diminished in bilateral lung bases. No crepitation/rhonchi Cardiovascular: Regular rate, Regular Rhythm, Normal S1, Normal S2, systolic murmur cardiac apex and LV Abdomen: Bowel Sounds hyperactive, soft, Non Tender, Non-Distended : Clear urine. No renal angle tenderness. No suprapubic tenderness. Extremities: No edema, Capillary Refill Less than 3 Seconds Skin: No rashes, No breakdown Musculoskeletal: No Tenderness to Palpation of Joints or Extremities, muscle strength 4+/5 at major joints. Neurological: Cranial nerves II-XII grossly intact, DTR 2+/4 and Symmetrical, Neuro grossly intact Psych/Mental Status: Flat affect. Assessment & Plan Assessment/Plan (1) Enteritis: PLAN: Plan The patient is a 66 y/o F was admitted with nausea, vomiting, generalized weakness getting worse over past 3 days. Patient history of ovarian cancer, undergoing chemotherapy under Dr. Crain. #1. Diffuse sequential wall thickening/irregularity terminal ileum, concern for enteritis: Patient is admitted to [place], on aggressive hydration, monitor I&Os, treat with zosyn regimen, IV PPI, anti-emetics, pain regimen PRN. Consider diet advancement to clears in AM if clinically improved. 07/25: Clear liquid is started. Advance as per tolerated. Patient nausea and vomiting controlled with Phenergan and Zofran. 07/25: Diet advanced to soft diet. Zofran 8 mg every 6 hourly along with Phenergan as needed for uncontrolled nausea. Patient did not vomit last evening. Mildly nauseated. #2. Lymphopenia, neutropenia, normocytic anemia secondary to underlying metastatic Ovarian cancer and recent chemotherapy with high risk VTE: Admission CBC with WBC 1.6, hemoglobin 8.5, platelets 63 with ANC 0.8 and also lymphopenia. Patient anemia is normocytic normochromic anemia, probably due to neoplasm/chemotherapy. Continue patient home apixaban regimen. On granix daily until neutropenia improves. Discussed case with Dr. Crain and he is amenable to the plan of care. Dr. Crain suggested EGD may be outpatient if she is stable. 07/26: Labs ordered. Hold Eliquis if platelet is below 50,000. #3. Hypokalemia: Admission K+ 3.4,Hypomagnesemia, Mg 1.5. Phosphorus level normal. Electrolytes getting replaced. 07/26: Monitor electrolytes and replace accordingly. Repeat magnesium and phosphorus. #4. Chronic Asthma w/ Allergic rhinitis: On ATC DuoNeb therapi IS parameters, continue patient home montelukast as well as cetirizine regimen. #5. Hyperlipidemia: continue patient on statin therapy. #6. GERD: We will maintain on PPI as noted #7. DVT prophylaxis: SCDs, morning monitor CBC daily as patient is on Eliquis 5 mg twice daily. #8. CODE status: Patient HCPOA is her and her daughter is secondary and living will is currently in place. Requested continuation of full Code status. Total time of the visit including total time spent in counseling or coordination of care, (more than 50% of the total time, spent in obtaining medical information from nurses and other ancillary care providers,explaining to the patient about labs, imaging, diagnosis and management of active complex medical conditions), management of complex medical problem, review of labs and imaging is 40 minutes. Charges/Coding Visit Charges Inpatient E&M: 56322 [facility] Hosp L2
[2022-07-26 11:19] LABS: ALB/GLOB Ratio 0.7 RATIO (0.9-2.4); AST(SGOT) 30 U/L (15-37); Alanine Aminotransfer ALT/SGPT 21 U/L (13-56); Albumin, Serum 2.8 g/dL (3.2-5.0); Alkaline Phosphatase 96 U/L (45-117); Anion Gap 6 (5-15); BUN 4 mg/dL (7-18); BUN/Creat Ratio 6.2 RATIO (10-20); Calcium,Total 9.6 mg/dL (8.5-10.1); Chloride 104 mmol/L (98-107); Creatinine, Serum 0.65 mg/dL (0.55-1.02); EST Glomerular Filtration Rate 97 mL/min (>60); Est Glom Filt Rate - Afr Amer 117 mL/min (>60); Globulin 3.9 g/dL (2.2-4.2); Glucose 109 mg/dL (74-106); Magnesium 1.4 mg/dL (1.6-2.6); Potassium 3.6 mmol/L (3.5-5.1); Protein, Total 6.7 g/dL (6.4-8.2); Sodium Level 138 mmol/L (136-145)
[2022-07-26 11:21] LABS: Phosphorus 3.2 mg/dL (2.5-4.9)
[2022-07-26 12:05] LABS: Hemoglobin 8.2 g/dL (12.0-15.0); Mean Corp Hgb Conc 30.4 g/dL (32-36); Mean Corpuscular Hgb 29.1 pg (27.0-32.0); Mean Corpuscular Volume 95.7 fL (81-99); Mean Platelet Vol. 10.4 fl (6.2-12.0); POSITIVE COUNT YES; POSITIVE MORPHOLOGY YES; RBC Distribution Width CV 14.1 % (11.6-14.6); RBC Distribution Width SD 47.7 fl (35.1-43.9); Red Blood Count 2.82 M/mm3 (4.2-5.4); White Blood Count 3.2 K/mm3 (4.4-11.0)
[2022-07-26] MEDS: Ipratropium/Albuterol Sulfate 3 ML AMPUL.NEB INHALATION ×2 (12:11→19:37)
[2022-07-26 12:21] LABS: Differential Indicated MANUAL DIFF; Platelet Count 46 K/mm3 (150-450)
[2022-07-26 12:55] LABS: Lymphocyte 26 % (19-41); Metamyelocyte 2 % (0-1); Monocyte 1 % (0-10); Myelocyte 3 % (0-0); Neutrophil-Band 5 % (0-5); Neutrophil-Segmented 63 % (47-70); Total Cells Counted 100 (MANUAL DIFF)
[2022-07-26 12:56] LABS: Platelet Estimate MKD DEC (ADEQ); Red Cell Morphology NORM C+C NORMAL (NORM C&C)
[2022-07-26 12:59] LABS: Absolute Lymphocyte Count 0.83 X10^3/uL (0.83-4.51); Absolute Neutrophil Count 2.2 X10^3/uL (2.0-7.7)
[2022-07-26] MEDS: Pramipexole Di-HCl 0.125 MG Tablet PO (21:52)
[2022-07-26] MEDS: Pravastatin 80 MG Tablet PO (21:53)
[2022-07-26] MEDS: Enoxaparin 40 MG/0.4 ML Syringe SC (22:12)
[2022-07-26] MEDS: Montelukast 10 MG Tablet PO (22:21)
[2022-07-27 03:23] VITALS: BP 118/71; PULSE 82; RESP 16; TEMP 36.7; O2SAT 99
[2022-07-27 07:02] LABS: Hematocrit 23.6 % (37-47); Hemoglobin 7.2 g/dL (12.0-15.0); Mean Corp Hgb Conc 30.5 g/dL (32-36); Mean Corpuscular Hgb 29.3 pg (27.0-32.0); Mean Corpuscular Volume 95.9 fL (81-99); Mean Platelet Vol. 9.6 fl (6.2-12.0); POSITIVE COUNT YES; POSITIVE MORPHOLOGY YES; Platelet Count 40 K/mm3 (150-450); RBC Distribution Width CV 14.1 % (11.6-14.6); RBC Distribution Width SD 48.6 fl (35.1-43.9); Red Blood Count 2.46 M/mm3 (4.2-5.4); White Blood Count 2.9 K/mm3 (4.4-11.0)
[2022-07-27 07:05] LABS: Differential Indicated MANUAL DIFF
[2022-07-27] MEDS: Ipratropium/Albuterol Sulfate 3 ML AMPUL.NEB INHALATION (07:12)
[2022-07-27 07:14] VITALS: PULSE 89; RESP 16; O2SAT 93
[2022-07-27 07:17] LABS: Anion Gap 6 (5-15); BUN 3 mg/dL (7-18); Calcium,Total 9.3 mg/dL (8.5-10.1); Chloride 104 mmol/L (98-107); EST Glomerular Filtration Rate 105 mL/min (>60); Est Glom Filt Rate - Afr Amer 127 mL/min (>60); Glucose 101 mg/dL (74-106); Potassium 3.1 mmol/L (3.5-5.1); Sodium Level 139 mmol/L (136-145)
[2022-07-27 07:33] LABS: Lymphocyte 31 % (19-41); Metamyelocyte 5 % (0-1); Neutrophil-Band 12 % (0-5); Neutrophil-Segmented 52 % (47-70); Total Cells Counted 100 (MANUAL DIFF)
[2022-07-27 07:34] LABS: Anisocytosis RARE; Platelet Estimate MKD DEC (ADEQ); Red Cell Morphology N CHROM NORMAL (NORM C&C)
[2022-07-27 07:35] LABS: Absolute Lymphocyte Count 0.86 X10^3/uL (0.83-4.51); Absolute Neutrophil Count 1.8 X10^3/uL (2.0-7.7); Lymphocyte # 0.86 X10^3/ul (0.83-4.51)
--- NOTE | 2022-07-27 08:23 | PCM.PN.HOSP ---
Subjective Subjective Feels well. Anxious to go home. Tolerating PO. Objective Data Objective Data Vital Signs: Vital Signs Temp Pulse Resp BP Pulse Ox O2 Del Method 36.7 C 89 16 118/71 93 Room Air 07/27/22 03:23 07/27/22 07:14 07/27/22 07:14 07/27/22 03:23 07/27/22 07:14 07/27/22 07:14 Oxygen Delivery Method Room Air Weight: 68.13 kg Body Mass Index (BMI) 26.2 Intake & Output: Intake and Output for Last 24 Hours 07/25/22 07/26/22 07/27/22 23:59 23:59 23:59 Intake Total 3317.75 / 3317.75 1430 / 1930 1150.00 / 1150.00 Output Total 300 / 300 300 / 300 Balance 3017.75 / 3017.75 1130 / 1630 1150.00 / 1150.00 Medical Nutrition Assessment Dietitian: Malnutrition Criteria Met Start: 07/25/22 12:56 Freq: Status: Active Protocol: Document 07/25/22 12:56 (Rec: 07/25/22 12:56 [id number]) Nutrition Malnutrition Evidence of Malnutrition Exists Yes Malnutrition (severe): Chronic Evidenced By Suboptimal Energy Intake ( Severe),Weight Loss (Severe) Clinical Problem Chronic Disease or Condition Related Malnutrition Etiology severe related to ovarian cancer with mets Signs/Symptoms as evidenced by <75% intake of estimated energy needs for >1 month and 24.4lbs (13.7%) weight loss in ~4.5 months Status Active Problem Recommendation Dietitian Recommendations/Changes ADAT to Low Fiber when medically able to manage medical conditions. Recommend Magic Cup BID with lunch and dinner as appropriate when diet advances to provide supplemental energy. Lab / Micro Data Result Diagrams: 07/27/22 06:35 07/27/22 06:35 Labs: Laboratory Results - last 24 hr 07/26/22 10:50: Sodium 138, Potassium 3.6, Chloride 104, Carbon Dioxide 28.0, Anion Gap 6, BUN 4 L, Creatinine 0.65, Estim Creat Clear Calc 46.50, Est GFR (MDRD) Af Amer 117, Est GFR (MDRD) Non-Af 97, BUN/Creatinine Ratio 6.2 L, Glucose 109 H, Calcium 9.6, Magnesium 1.4 L, Total Bilirubin 0.40, AST 30, ALT 21, Alkaline Phosphatase 96, Total Protein 6.7, Albumin 2.8 L, Globulin 3.9, Albumin/Globulin Ratio 0.7 L 07/26/22 10:50: Phosphorus 3.2 07/26/22 10:50: WBC 3.2 L, RBC 2.82 L, Hgb 8.2 L, Hct 27.0 L, MCV 95.7, MCH 29.1, MCHC 30.4 L, RDW Std Deviation 47.7 H, RDW Coeff of Alvarez 14.1, Plt Count 46 L*, MPV 10.4, Neut % (Auto) Not Reportable, Absolute Neuts (auto) 2.2, Absolute Lymphs (auto) 0.83, Total Counted 100, Neutrophils % (Manual) 63, Band Neutrophils % 5, Lymphocytes % (Manual) 26, Monocytes % (Manual) 1, Metamyelocytes % 2 H, Myelocytes % 3 H, Diff Path Review November tonya, Platelet Estimate MKD DEC, RBC Morphology NORM C+C 07/27/22 06:35: WBC 2.9 L, RBC 2.46 L, Hgb 7.2 L, Hct 23.6 L, MCV 95.9, MCH 29.3, MCHC 30.5 L, RDW Std Deviation 48.6 H, RDW Coeff of Alvarez 14.1, Plt Count 40 L*, MPV 9.6, Neut % (Auto) Not Reportable, Absolute Neuts (auto) 1.8 L, Absolute Lymphs (auto) 0.86, Total Counted 100, Neutrophils % (Manual) 52, Band Neutrophils % 12 H, Lymphocytes % (Manual) 31, Metamyelocytes % 5 H, Diff Path Review May tonya, Platelet Estimate MKD DEC, RBC Morphology N CHROM, Anisocytosis RARE 07/27/22 06:35: Sodium 139, Potassium 3.1 L, Chloride 104, Carbon Dioxide 29.0, Anion Gap 6, BUN 3 L, Creatinine 0.60, Estim Creat Clear Calc 46.50, Est GFR (MDRD) Af Amer 127, Est GFR (MDRD) Non-Af 105, BUN/Creatinine Ratio 5.0 L, Glucose 101, Calcium 9.3 Physical Exam Const alert and no apparent distress HEENT head/scalp atraumatic Resp normal respiratory effort, no retractions, no use of accessory muscles and clear to auscultation bilaterally Cardio regular rate, regular rhythm, S1 normal heart sound and S2 normal heart sound GI normal to inspection, nondistended, normoactive bowel sounds, soft to palpation, non-tender and non-distended Extremity normal to inspection Assessment & Plan Assessment/Plan (1) Enteritis: PLAN: #1. Diffuse sequential wall thickening/irregularity terminal ileum, concern for enteritis: Patient is admitted to [facility], on aggressive hydration, monitor I&Os, treat with zosyn regimen, IV PPI, anti-emetics, pain regimen PRN. Consider diet advancement to clears in AM if clinically improved. 07/25: Clear liquid is started. Advance as per tolerated. Patient nausea and vomiting controlled with Phenergan and Zofran. 07/25: Diet advanced to soft diet. Zofran 8 mg every 6 hourly along with Phenergan as needed for uncontrolled nausea. Patient did not vomit last evening. Mildly nauseated. 07/27: DC with Augmentin (2) Hypokalemia: PLAN: Hypokalemia: Admission K+ 3.4,Hypomagnesemia, Mg 1.5. Phosphorus level normal. Electrolytes getting replaced. 07/26: Monitor electrolytes and replace accordingly. Repeat magnesium and phosphorus. 07/27: replace. Mag low, replace. PLAN: Plan Lymphopenia, neutropenia, normocytic anemia secondary to underlying metastatic Ovarian cancer and recent chemotherapy with high risk VTE: Admission CBC with WBC 1.6, hemoglobin 8.5, platelets 63 with ANC 0.8 and also lymphopenia. Patient anemia is normocytic normochromic anemia, probably due to neoplasm/chemotherapy. Continue patient home apixaban regimen. On granix daily until neutropenia improves. Discussed case with Dr. Crain and he is amenable to the plan of care. Dr. Crain suggested EGD may be outpatient if she is stable. 07/26: Labs ordered. Hold Eliquis if platelet is below 50,000. Chronic Asthma w/ Allergic rhinitis: On ATC DuoNeb therapi IS parameters, continue patient home montelukast as well as cetirizine regimen. Hyperlipidemia: continue patient on statin therapy. GERD: We will maintain on PPI as noted DVT prophylaxis: SCDs, morning monitor CBC daily as patient is on Eliquis 5 mg twice daily. CODE status: Patient HCPOA is her and her daughter is secondary and living will is currently in place. Requested continuation of full Code status.
[2022-07-27] MEDS: Gabapentin 300 MG Capsule 900 MG PO (09:14)
[2022-07-27] MEDS: Loratadine 10 MG Tablet PO (09:14)
[2022-07-27 09:30] VITALS: BP 110/65; PULSE 74; RESP 18; TEMP 37.2; O2SAT 98
[2022-07-27] MEDS: TBO-FILGRASTIM 480 MCG/0.8 ML ML SC (10:50)
[2022-07-27 11:05] LABS: Magnesium 1.3 mg/dL (1.6-2.6)
--- NOTE | 2022-07-27 12:37 | CASEMGMT ---
Social Work Per nursing assessment, pt states she has a living will and a Health Care POA naming her spouse Ras Huffman. Pt is aware documents are not on file at [facility] and need to be brought in. ROCK Stiles
--- NOTE | 2022-07-27 14:04 | DCINST_ITS ---
Discharge Instructions Diet Discharge Diet: No restrictions Dressing / Incision Call your doctor if you observe: - (worsening abdominal pain. intractable diarrhea. ) Follow Up Care Test Results: Test results from this visit will be discussed in further detail at your follow- up appointment, if applicable. Discharge Plan Admission Admit Date/Time: 07/25/22 15:27 Primary Reason for Your Visit: Enteritis Attending Provider: Michael Carmona Primary Care Provider: Chance Duckworth Consulting Providers: Clau Gómez ; Darren Maldonado Discharge Orders/Prescriptions Prescriptions: New potassium chloride [Klor-Con M20] 20 mEq Tablet,Er Particles/Crystals 40 meq PO BIDCM Qty: 4 0RF acidophilus-pectin, citrus 25 million cell -100 mg Tablet 1 tab PO BID Qty: 14 0RF amoxicillin-pot clavulanate 875-125 mg tablet 1 tab PO BID Qty: 8 0RF Continued pravastatin 80 mg Tablet 80 mg PO QHS montelukast 10 mg Tablet 10 mg PO QHS fluticasone furoate-vilanterol [Breo Ellipta] 100-25 mcg/dose Blister With Device 1 inh INHALATION DAILY gabapentin 300 mg capsule 600 - 900 mg PO BID Label Comments: TAKE 2 CAPSULES BY MOUTH TWICE DAILY FOR NEUROPATHY (AM AND AT BEDTIME) Eliquis 5 mg tablet 5 mg PO BID cetirizine 10 mg tablet 10 mg PO DAILY Label Comments: TAKE 1 TABLET BY MOUTH ONCE DAILY pantoprazole 40 mg tablet,delayed release (DR/EC) 40 mg PO DAILY Label Comments: TAKE 1 TABLET BY MOUTH ONCE DAILY AT 6:00 A.M. promethazine 25 mg tablet 25 mg PO Q6H PRN (Reason: Nausea) Label Comments: TAKE 1 TABLET BY MOUTH EVERY 6 HOURS NEEDED FOR NAUSEA Referrals / Follow Up: Chance Duckworth MD [Primary Care Provider] - Within 2 Weeks Disposition Disposition (needs filled in before D/C Order can be placed): Home, Self Care
--- NOTE | 2022-07-27 14:08 | PCM.DC.SUM ---
Providers Date of Admission: 07/25/22 Primary Care Physician: Dr. Chance Duckworth MD Reason For Visit: ENTERITIS, HYPOKALEMIA Diagnosis Discharge Diagnosis (1) Enteritis: Status: Acute Code(s): K52.9 - Noninfective gastroenteritis and colitis, unspecified Plan: #1. Diffuse sequential wall thickening/irregularity terminal ileum, concern for enteritis: Patient is admitted to [place], on aggressive hydration, monitor I&Os, treat with zosyn regimen, IV PPI, anti-emetics, pain regimen PRN. Consider diet advancement to clears in AM if clinically improved. 07/25: Clear liquid is started. Advance as per tolerated. Patient nausea and vomiting controlled with Phenergan and Zofran. 07/25: Diet advanced to soft diet. Zofran 8 mg every 6 hourly along with Phenergan as needed for uncontrolled nausea. Patient did not vomit last evening. Mildly nauseated. 07/27: DC with Augmentin (2) Hypokalemia: Status: Acute Code(s): E87.6 - Hypokalemia Plan: Hypokalemia: Admission K+ 3.4,Hypomagnesemia, Mg 1.5. Phosphorus level normal. Electrolytes getting replaced. 07/26: Monitor electrolytes and replace accordingly. Repeat magnesium and phosphorus. 07/27: replace. Mag low, replace. Plan Lymphopenia, neutropenia, normocytic anemia secondary to underlying metastatic Ovarian cancer and recent chemotherapy with high risk VTE: Admission CBC with WBC 1.6, hemoglobin 8.5, platelets 63 with ANC 0.8 and also lymphopenia. Patient anemia is normocytic normochromic anemia, probably due to neoplasm/chemotherapy. Continue patient home apixaban regimen. On granix daily until neutropenia improves. Discussed case with Dr. Crain and he is amenable to the plan of care. Dr. Crain suggested EGD may be outpatient if she is stable. 07/26: Labs ordered. Hold Eliquis if platelet is below 50,000. Chronic Asthma w/ Allergic rhinitis: On ATC DuoNeb therapi IS parameters, continue patient home montelukast as well as cetirizine regimen. Hyperlipidemia: continue patient on statin therapy. GERD: We will maintain on PPI as noted DVT prophylaxis: SCDs, morning monitor CBC daily as patient is on Eliquis 5 mg twice daily. CODE status: Patient HCPOA is her and her daughter is secondary and living will is currently in place. Requested continuation of full Code status. Medications at Discharge Home Medications fluticasone furoate 100 mcg-vilanterol 25 mcg/dose inhalation powder (Breo Ellipta) 1 inh inhalation DAILY asthma 03/07/22 montelukast 10 mg tablet 10 mg PO QHS allergies 03/07/22 pravastatin 80 mg tablet 80 mg PO QHS cholesterol 03/07/22 apixaban 5 mg tablet (Eliquis) 5 mg PO BID 07/24/22 cetirizine 10 mg tablet 10 mg PO DAILY ALLERGIES 07/24/22 gabapentin 300 mg capsule 600 - 900 mg PO BID 07/24/22 pantoprazole 40 mg tablet,delayed release 40 mg PO DAILY GERD 07/24/22 promethazine 25 mg tablet 25 mg PO Q6H PRN Nausea 07/24/22 acidophilus 25 million cell-pectin, citrus 100 mg tablet 1 tab PO BID #14 tabs 07/27/22 amoxicillin 875 mg-potassium clavulanate 125 mg tablet 1 tab PO BID #8 tabs 07/27/22 potassium chloride 20 mEq tablet,extended release(part/cryst) (Klor-Con M) 40 meq PO BIDCM #4 tabs 07/27/22 Hospital Course Operations None Procedures None Summary of Care Provided Minutes Spent on Discharge: 32 Medical Records Data Medical Nutrition Assessment Dietitian: Malnutrition Criteria Met Start: 07/25/22 12:56 Freq: Status: Active Protocol: Document 07/25/22 12:56 LO (Rec: 07/25/22 12:56 [id number]) Nutrition Malnutrition Evidence of Malnutrition Exists Yes Malnutrition (severe): Chronic Evidenced By Suboptimal Energy Intake ( Severe),Weight Loss (Severe) Clinical Problem Chronic Disease or Condition Related Malnutrition Etiology severe related to ovarian cancer with mets Signs/Symptoms as evidenced by <75% intake of estimated energy needs for >1 month and 24.4lbs (13.7%) weight loss in ~4.5 months Status Active Problem Recommendation Dietitian Recommendations/Changes ADAT to Low Fiber when medically able to manage medical conditions. Recommend Magic Cup BID with lunch and dinner as appropriate when diet advances to provide supplemental energy. Weight / BMI Weight Weight: 68.13 kg Body Mass Index (BMI) 26.2 ABG / Lab / Microbiology Data Result Diagrams: 07/27/22 06:35 07/27/22 06:35 Laboratory: Laboratory Results - last 24 hr 07/27/22 06:35: WBC 2.9 L, RBC 2.46 L, Hgb 7.2 L, Hct 23.6 L, MCV 95.9, MCH 29.3, MCHC 30.5 L, RDW Std Deviation 48.6 H, RDW Coeff of Alvarez 14.1, Plt Count 40 L*, MPV 9.6, Neut % (Auto) Not Reportable, Absolute Neuts (auto) 1.8 L, Absolute Lymphs (auto) 0.86, Total Counted 100, Neutrophils % (Manual) 52, Band Neutrophils % 12 H, Lymphocytes % (Manual) 31, Metamyelocytes % 5 H, Diff Path Review November foll, Platelet Estimate MKD DEC, RBC Morphology N CHROM, Anisocytosis RARE 07/27/22 06:35: Sodium 139, Potassium 3.1 L, Chloride 104, Carbon Dioxide 29.0, Anion Gap 6, BUN 3 L, Creatinine 0.60, Estim Creat Clear Calc 46.50, Est GFR (MDRD) Af Amer 127, Est GFR (MDRD) Non-Af 105, BUN/Creatinine Ratio 5.0 L, Glucose 101, Calcium 9.3 07/27/22 06:35: Magnesium 1.3 L D/C Instructions Discharge Diet: No restrictions Call your doctor if you observe: - (worsening abdominal pain. intractable diarrhea. ) Meaningful Use Info Meaningful Use Diagnoses (Choose all that apply): None applicable Discharge Plan Admission Admit Date/Time: 07/25/22 15:27 Primary Reason for Your Visit: Enteritis Attending Provider: Michael Carmona Primary Care Provider: Chance Duckworth Consulting Providers: Clau Gómez ; Darren Maldonado Discharge Orders/Prescriptions Prescriptions: New potassium chloride [Klor-Con M20] 20 mEq Tablet,Er Particles/Crystals 40 meq PO BIDCM Qty: 4 0RF acidophilus-pectin, citrus 25 million cell -100 mg Tablet 1 tab PO BID Qty: 14 0RF amoxicillin-pot clavulanate 875-125 mg tablet 1 tab PO BID Qty: 8 0RF Continued pravastatin 80 mg Tablet 80 mg PO QHS montelukast 10 mg Tablet 10 mg PO QHS fluticasone furoate-vilanterol [Breo Ellipta] 100-25 mcg/dose Blister With Device 1 inh INHALATION DAILY gabapentin 300 mg capsule 600 - 900 mg PO BID Label Comments: TAKE 2 CAPSULES BY MOUTH TWICE DAILY FOR NEUROPATHY (AM AND AT BEDTIME) Eliquis 5 mg tablet 5 mg PO BID cetirizine 10 mg tablet 10 mg PO DAILY Label Comments: TAKE 1 TABLET BY MOUTH ONCE DAILY pantoprazole 40 mg tablet,delayed release (DR/EC) 40 mg PO DAILY Label Comments: TAKE 1 TABLET BY MOUTH ONCE DAILY AT 6:00 A.M. promethazine 25 mg tablet 25 mg PO Q6H PRN (Reason: Nausea) Label Comments: TAKE 1 TABLET BY MOUTH EVERY 6 HOURS NEEDED FOR NAUSEA Referrals / Follow Up: Chance Duckworth MD [Primary Care Provider] - Within 2 Weeks Disposition Disposition (needs filled in before D/C Order can be placed): Home, Self Care Charges/Coding Visit Charges Inpatient E&M: 27016 Disch Hosp >30min
[2022-07-27] MEDS: Magnesium Sulfate 4gm/100mL 4 GM/100 ML IV.SOLN. IV (14:34)
--- NOTE | 2022-07-27 15:22 | CASEMGMT ---
RN CM in to pt room, discussed HHC with patient. She is agreeable to PT and OT at home but denies the need for SN. Pt was provided a list of HHC providers including quality and resource use data and consistent with the patient?s preferred geographic region, medical needs, and insurance network were provided from the [facility] Guide. Pt chose [facility] as first choice. Referral sent to [facility] via careport at this time.
[2022-07-27 16:00] VITALS: BP 108/69; PULSE 80; RESP 18; TEMP 36.8; O2SAT 96
--- NOTE | 2022-07-27 16:27 | CHAPLAIN ---
Type of Pastoral Visit _x__ Initial Visit ___ Follow-up Visit ___ On-call Visit ___ General Patient Visit ___ Spiritual Assessment ___ Family Conference ___ Bereavement ___ Rapid Response ___ Code Blue ___ Other (describe below) Pastoral Care Referral From _x__ Patient ___ Family ___ Nurse ___ Physician ___ Merchandising Execution Associate ___ Rotary Cutter ___ Other (describe below) Sacrament/Intervention _x__ Active listening ___ Anointing ___ Temple ___ Bereavement ___ Communion ___ Jen exploration ___ ___ Life review _x__ Prayer ___ Reconciliation ___ Sacrament of Sick _x__ Supportive presence ___ Wedding ___ Other (describe below) Pastoral Comments patient states she remembers this upholstery tech from a previous admission and gives update on her condition; pt states she just learned of new cancer in lungs and will have an appointment with oncology to discuss what this means; pt admits concern for this new diagnosis in addition to current cancer 'which had an end date soon for chemo; pt states she has active support from family members; pt goal is to get well; pt welcomes presence, time to talk, and prayers;
[2022-07-27] MEDS: Potassium Chloride Oral Tablet 20 MEQ 40 MEQ PO (17:20)
[2022-07-27] MEDS: 0.9% Saline Lock 10 ML Syringe IV (18:55)
[2022-07-28 09:09] LABS: Pathologist Review Reviewed
[2022-07-28 09:09] LABS: Pathologist Review Reviewed
[2022-07-28 09:09] LABS: Pathologist Review Reviewed
--- NOTE | 2022-07-28 12:31 | CASEMGMT ---
Addendum entered by Maria Dolores Alvarado 07/28/22 13:16: Received tc back from Ramandeep, pt is accepted. She will reach out to pt to get her scheduled. Original Note: TC to Ramandeep liaison at [facility] to check on referral status. She will call office and call this RN CM back.
--- NOTE | 2022-07-31 10:24 | CASEMGMT ---
Receive vm from pt last evening asking if HHC was set up. TC to Ramandeep at [facility], she states they did touch base with pt and was supposed to go out and see her today but pt called in and is having issues so she cancelled. TC to pt, spoke with pt dtr Emily who states pt is going to her oncologist office this morning for an infusion. Dtr is aware that HHC is set up. She states that pt is now aware and that she did need to cancel this morning. She is aware the HHC will follow with her for a visit next week.
== END 2022-07-27 19:17 | disposition home health service (06) | DRG 393 ==
LOC: ED 16:25 → MS2 16:57
PROVIDERS: Internal Medicine; Admitting Provider Family Medicine; Emergency Provider Emergency Medicine; PCP Family Medicine
DX: K52.1 Toxic gastroenteritis and colitis (principal); E43 Unspecified severe protein-calorie malnutrition; C79.9 Secondary malignant neoplasm of unspecified site; C56.9 Malignant neoplasm of unspecified ovary; D70.9 Neutropenia, unspecified; E87.6 Hypokalemia; E78.5 Hyperlipidemia, unspecified; D63.0 Anemia in neoplastic disease; K21.9 Gastro-esophageal reflux disease without esophagitis; J45.909 Unspecified asthma, uncomplicated; A04.9 Bacterial intestinal infection, unspecified; T45.1X5A Adverse effect of antineoplastic and immunosuppressive drugs, initial encounter; Z68.26 Body mass index [BMI] 26.0-26.9, adult; Z79.01 Long term (current) use of anticoagulants; Z79.899 Other long term (current) drug therapy
CPT/HCPCS: 36415; 36591; 74177; 80048; 80053; 81001; 83690; 83735; 84100; 85025; 94640; 97110; 97116; 97162; 97165; 97530; 97535; 97802; 99252; 99285; J7030; J7120; Q9967; A4216; G0463; J1447; J2405

== ENCOUNTER → 2022-09-01 | Outpatient (CLI) | payer MEDICARE, SELFPAY ==
[2022-09-01 08:29] VITALS: BP 92/62; PULSE 81; RESP 16; TEMP 37.3; O2SAT 99
[2022-09-01 08:57] VITALS: BP 89/66; PULSE 64; RESP 16; TEMP 37.2; O2SAT 100
[2022-09-01 09:57] VITALS: BP 99/70; PULSE 61; RESP 16; TEMP 37.1; O2SAT 99
[2022-09-01] MEDS: 0.9% NaCl Peripheral Flush Adult/Peds IV (10:31)
[2022-09-01 10:35] VITALS: BP 91/54; PULSE 64; RESP 16; TEMP 37.1; O2SAT 100
== END | disposition home or self-care (01) ==
LOC: MEDOUTP 08:10
PROVIDERS: PCP Family Medicine; Referring Provider Internal Medicine Hematology & Oncology; Visit Provider Internal Medicine Hematology & Oncology
DX: E83.111 Hemochromatosis due to repeated red blood cell transfusions (principal)
CPT/HCPCS: 96372; 96360; 36430; 86850; 86900; 86901; 86920; 86922; J7040; P9016; A4216

== ENCOUNTER → 2022-10-26 | Outpatient (CLI) | payer MEDICARE, SELFPAY ==
[2022-10-26 10:47] LABS: Anion Gap 6 (5-15); BUN 8 mg/dL (7-18); BUN/Creat Ratio 12.8 RATIO (10-20); Calcium,Total 9.6 mg/dL (8.5-10.1); Chloride 101 mmol/L (98-107); Creatinine, Serum 0.63 mg/dL (0.55-1.02); EST Glomerular Filtration Rate 100 mL/min (>60); Est Glom Filt Rate - Afr Amer 121 mL/min (>60); Glucose 113 mg/dL (74-106); Magnesium 1.4 mg/dL (1.6-2.6); Potassium 3.5 mmol/L (3.5-5.1); Sodium Level 135 mmol/L (136-145)
== END | disposition home or self-care (01) ==
LOC: LABSPEC 10:00
PROVIDERS: PCP Family Medicine; Referring Provider Internal Medicine Hematology & Oncology; Visit Provider Internal Medicine Hematology & Oncology
DX: C56.3 Malignant neoplasm of bilateral ovaries (principal); E83.42 Hypomagnesemia
CPT/HCPCS: 80048; 83735

== ENCOUNTER 2023-01-15 12:09 | Emergency (ER) | payer MEDICARE, SELFPAY ==
[2023-01-15 12:10] VITALS: BP 121/97; PULSE 98; RESP 18; TEMP 36.4; O2SAT 98
[2023-01-15 12:22] VITALS: BP 121/98; PULSE 83; RESP 16; BMI 25.5
[2023-01-15 12:34] VITALS: BP 118/101; PULSE 85
--- NOTE | 2023-01-15 12:46 | EDS_ITS ---
HPI History of Present Illness Chief Complaint: Nausea/Vomiting/Diarrhea Detail of Chief Complaint: Nausea and dehydration Informant: patient Narrative Narrative: Patient presents to the emergency department complaint nausea. Patient also feels like she is dehydrated. Patient is a chemo patient and last received chemo 8 days ago for ovarian cancer. Patient states that she typically gets diarrhea after that and did have diarrhea but now it is resolved. Since yesterday she has had severe nausea and not able to eat or drink. She denies abdominal pain. She denies chest pain. She is on Zofran at home but does not seem to be helping. Patient was advised to come into the emergency department and get hydrated. [facility] Medical History (Updated 01/15/23 @ 14:[address] Calin Hale, DO) Allergic rhinitis Asthma Chemotherapy adverse reaction HLD (hyperlipidemia) Neuropathy Ovarian cancer Overweight Home Medications fluticasone furoate 100 mcg-vilanterol 25 mcg/dose inhalation powder (Breo Ellipta) 1 inh inhalation DAILY asthma 03/07/22 [History Last Taken 07/23/22] montelukast 10 mg tablet 10 mg PO QHS allergies 03/07/22 [History Last Taken 07/23/22] pravastatin 80 mg tablet 80 mg PO QHS cholesterol 03/07/22 [History Last Taken 07/23/22] apixaban 5 mg tablet (Eliquis) 5 mg PO BID 07/24/22 [History Last Taken 07/24/22] gabapentin 300 mg capsule 600 - 900 mg PO TID 07/24/22 [History Last Taken 07/23/22] pantoprazole 40 mg tablet,delayed release 40 mg PO BID GERD 07/24/22 [History Last Taken 07/23/22] acetaminophen 500 mg tablet 1,000 mg PO Q6H PRN Pain 09/01/22 [History Last Taken Unknown] acidophilus 25 million cell-pectin, citrus 100 mg tablet 1 tab PO DAILY 09/01/22 [History Last Taken Unknown] albuterol 90 mcg/actuation aerosol inhaler See Rx Instructions inhalation .COMPLEX 09/01/22 [History Last Taken Unknown] diphenoxylate-atropine 2.5 mg-0.025 mg tablet (Lomotil) 1 tab PO TID PRN Diarrhea 09/01/22 [History Last Taken Unknown] folic acid 1 mg tablet 1 mg PO DAILY 09/01/22 [History Last Taken Unknown] lidocaine-prilocaine 2.5 %-2.5 % topical cream 0.5 g PRN port access 09/01/22 [History Last Taken Unknown] magnesium chloride 71.5 mg (magnesium chloride) tablet,delayed release 71.5 mg PO BID 09/01/22 [History Last Taken Unknown] olanzapine 5 mg tablet (Zyprexa) 5 mg PO BID PRN PRN Nausea 09/01/22 [History Last Taken Unknown] ondansetron 8 mg oral soluble film 8 mg PO Q8H PRN Nausea 09/01/22 [History Last Taken Unknown] potassium chloride 20 mEq tablet,extended release(part/cryst) (Klor-Con M) 40 meq PO DAILY 09/01/22 [History Last Taken Unknown] tramadol 50 mg tablet 50 mg PO QHS PRN Pain 09/01/22 [History Last Taken Unknown] lorazepam 0.5 mg tablet mg 01/15/23 [History Last Taken Unknown] Allergy/AdvReac Type Severity Reaction Status Date / Time ondansetron Allergy Mild Other Verified 01/15/23 12:29 cephalexin [From Keflex] Allergy Nausea/Vom/ Verified 07/24/22 10:46 Diarrhea Family History Mother CAD (coronary artery disease) HLD (hyperlipidemia) Heart disease Father Heart disease Diabetes age 68 secondary to complicates of diabetes. Surgical History History of appendectomy History of cholecystectomy History of hysterectomy History of intestinal surgery Total knee replacement status Social History household members: spouse Smoking Status: Never smoker alcohol intake: never substance use type: does not use ROS ROS ED Review of Systems ROS Unobtainable: other Constitutional Constitutional ED: Reports lethargy; Denies chills, fever(s), sweats or weight loss Eyes Eyes: Denies blurry vision, change in vision or diplopia ENT ENT ED: Denies rhinorrhea or sore throat Cardiovascular Cardiovascular: Denies chest pain, orthopnea or racing heartbeat Respiratory/Chest Respiratory/Chest: Denies cough, dyspnea, dyspnea on exertion, orthopnea or sputum Gastrointestinal Gastrointestinal: Reports nausea; Denies abdominal pain, diarrhea or vomiting Genitourinary Genitourinary ED: Denies dysuria, hematuria or urinary frequency Musculoskeletal Musculoskeletal: Denies arthralgias, back pain, myalgias or neck pain Integumentary Denies abscess, Abrasions or rash Neurologic Neurologic: Denies headache(s) or weakness Psychiatric Psychiatric: Denies anxiety, depression or suicidal thoughts Endocrine Endocrinology: Denies polydipsia, polyphagia or polyuria Hematologic/Lymphatic Hematologic/Lymphatic: Denies easy bleeding, easy bruising or lymphadenopathy Allergic/Immunologic Allergic/Immunologic ED: Denies mouth swelling, tongue swelling or urticaria EXAM Physical Exam Const Vital Signs: 01/15/23 12:10 01/15/23 12:22 01/15/23 12:34 Temperature 97.5 F L Temperature Source Temporal Pulse Rate 98 83 85 Respiratory Rate 18 16 Blood Pressure 121/97 H 121/98 H 118/101 H Blood Pressure Mean 105 105 106 Pulse Ox 98 Oxygen Delivery Method Room Air Room Air 01/15/23 14:57 Temperature Temperature Source Pulse Rate 74 Respiratory Rate Blood Pressure 130/91 H Blood Pressure Mean 104 Pulse Ox Oxygen Delivery Method Positive well nourished and well developed General Appearance ED: well developed and NAD HEENT Reports TM's clear and dry mucous membranes normocephalic and atraumatic; Negative for trauma or tenderness Tympanic Membrane ED: Yes TM's clear Mouth ED: Yes dry mucous membranes Mouth: dry mucous membranes Eyes PERRL and EOMs intact bilaterally General Eye ED: Negative for pale conjunctiva or scleral icterus Neck no lymphadenopathy, supple and no JVD General: Negative for tenderness Chest Wall inspection of chest normal and palpation of chest normal Chest: Negative for tenderness Resp normal respiratory effort and clear to auscultation bilaterally Effort and Inspection: Negative for respiratory distress or pain with movement Auscultation: Negative for rhonchi, wheezes or diminished lung sounds Cardio regular rate, regular rhythm, S1 normal heart sound, S2 normal heart sound and no murmurs Peripheral Pulses: pulses 2+ throughout GI normal to inspection, nondistended, normoactive bowel sounds, soft to palpation, non-tender, non-distended and no masses Back/Spine no CVA tenderness and no thoracic nor lumbar tenderness Extremity normal to inspection General Extremety ED: Negative for edema General Extremity: Negative for edema Neuro oriented x3, CN's II-XII intact bilaterally, no sensory deficits noted and gait normal Sensorium / Orientation: awake, alert, oriented to person, oriented to place and oriented to time Motor Exam: strength 5/5 throughout and strength abnormal Psych mental status grossly normal Skin no rashes or lesions noted and no wounds MDM MDM MDM Narrative Medical decision making narrative: Patient had an IV established on arrival. She was given a liter normal same fluid bolus and given Zofran 4 mg IV as well as Pepcid 20 mg IV. She did feel improved but did ask for some more nausea medicine I will give her Reglan 5 mg IV. I ordered a second liter of fluid. CBC with differential count of 5.1 with a hemoglobin of 10.8 and platelet count of 280 with absolute neutrophil count of 4.2. Chemistry essentially unremarkable. LFTs and lipase were normal. After hydration patient will be discharged to home. She is advised to follow-up with her oncologist within the next 3 to 5 days. Patient advised to return if vomiting, dehydration, or condition should worsen anyway. I feel her nausea likely related to her chemotherapy and decreased p.o. intake Lab Data Labs: Laboratory Results - last 24 hr 01/15/23 13:12 WBC 5.1 RBC 3.49 L Hgb 10.8 L Hct 34.5 L MCV 98.9 MCH 30.9 MCHC 31.3 L RDW Std Deviation 51.7 H RDW Coeff of Alvarez 14.4 Plt Count 280 MPV 8.3 Immature Gran % (Auto) 1.200 H Neut % (Auto) 80.7 H Lymph % (Auto) 11.3 L [place] % (Auto) 6.4 Eos % (Auto) 0.2 Baso % (Auto) 0.2 Absolute Neuts (auto) 4.2 Absolute Lymphs (auto) 0.58 L Nucleated RBC % 0 Platelet Estimate ADEQUATE RBC Morphology NORM C+C Sodium 134 L Potassium 3.6 Chloride 100 Carbon Dioxide 30.0 Anion Gap 4 L BUN 6 L Creatinine 0.58 Estim Creat Clear Calc 45.85 Est GFR (MDRD) Af Amer 134 Est GFR (MDRD) Non-Af 111 BUN/Creatinine Ratio 10.4 Glucose 111 H Calcium 9.4 Total Bilirubin 0.50 AST 28 ALT 14 Alkaline Phosphatase 100 Total Protein 6.7 Albumin 2.7 L Globulin 4.0 Albumin/Globulin Ratio 0.7 L Lipase 13 Discharge Plan Triage Chief Complaint: Nausea/Vomiting/Diarrhea ED Provider: Calin Hale Dx/Rx/DC Orders Clinical Impression: Nausea Instructions: Cancer Tx Control Nausea Vomiting Prescriptions: No Action pravastatin 80 mg Tablet 80 mg PO QHS montelukast 10 mg Tablet 10 mg PO QHS fluticasone furoate-vilanterol [Breo Ellipta] 100-25 mcg/dose Blister With Device 1 inh INHALATION DAILY gabapentin 300 mg capsule 600 - 900 mg PO TID Patient Comments: TAKE 2 CAPSULES BY MOUTH TWICE DAILY FOR NEUROPATHY (AM AND AT BEDTIME) Eliquis 5 mg tablet 5 mg PO BID pantoprazole 40 mg tablet,delayed release (DR/EC) 40 mg PO BID Patient Comments: TAKE 1 TABLET BY MOUTH ONCE DAILY AT 6:00 A.M. potassium chloride [Klor-Con M20] 20 mEq tablet,ER particles/crystals 40 meq PO DAILY acidophilus-pectin, citrus 25 million cell -100 mg tablet 1 tab PO DAILY diphenoxylate-atropine [Lomotil] 2.5-0.025 mg Tablet 1 tab PO TID PRN (Reason: Diarrhea) acetaminophen 500 mg Tablet 1,000 mg PO Q6H PRN (Reason: Pain) albuterol 90 mcg/actuation Aerosol See Rx Instructions INHALATION .COMPLEX Rx Instructions: inhaled; lidocaine-prilocaine [Emla] 2.5-2.5 % Cream 0.5 g PRN (Reason: port access) folic acid 1 mg Tablet 1 mg PO DAILY olanzapine [Zyprexa] 5 mg Tablet 5 mg PO BID PRN PRN (Reason: Nausea) tramadol 50 mg Tablet 50 mg PO QHS PRN (Reason: Pain) ondansetron 8 mg Film 8 mg PO Q8H PRN (Reason: Nausea) magnesium chloride 71.5 mg Tablet,Delayed Release (Dr/Ec) 71.5 mg PO BID lorazepam 0.5 mg tablet Patient Comments: TAKE 1 TABLET BY MOUTH ONCE DAILY FOR ANXIETY Primary Care Provider: Chance Duckworth Referrals: Chance Duckworth MD [Primary Care Provider] - Orion Crain DO [Med Staff - Active Staff] - 3-5 Days Disposition Disposition: Home, Self Care
[2023-01-15] MEDS: 0.9% Normal Saline 1,000 ML 1000 ML IV (13:18)
[2023-01-15] MEDS: Famotidine 20 MG Tablet PO (13:22)
[2023-01-15] MEDS: Ondansetron 4 MG/2 ML Vial IV (13:23)
[2023-01-15 13:30] LABS: Absolute Lymphocyte Count 0.58 X10^3/uL (0.83-4.51); Absolute Neutrophil Count 4.2 X10^3/uL (2.0-7.7); Basophil# 0.01 X10^3/uL; Basophil% 0.2 % (0-1); Eosinophil# 0.01 X10^3/uL; Eosinophils% 0.2 % (0-5); Hematocrit 34.5 % (37-47); Hemoglobin 10.8 g/dL (12.0-15.0); Lymphocyte # 0.58 X10^3/ul (0.83-4.51); Lymphocyte % 11.3 % (19-41); Mean Corp Hgb Conc 31.3 g/dL (32-36); Mean Corpuscular Hgb 30.9 pg (27.0-32.0); Mean Corpuscular Volume 98.9 fL (81-99); Mean Platelet Vol. 8.3 fl (6.2-12.0); Monocyte# 0.33 X10^3/uL; Monocyte% 6.4 % (0-10); NRBC Flagged by Analyzer 0 % (0-5); Neutrophil # 4.15 X10^3/uL (2.7-7.7); Neutrophil % 80.7 % (47-70); POSITIVE DIFFERENTIAL YES; Platelet Count 280 K/mm3 (150-450); RBC Distribution Width CV 14.4 % (11.6-14.6); RBC Distribution Width SD 51.7 fl (35.1-43.9); Red Blood Count 3.49 M/mm3 (4.2-5.4); White Blood Count 5.1 K/mm3 (4.4-11.0)
[2023-01-15 13:31] LABS: Differential Indicated SCAN CRITERIA MET
[2023-01-15 13:45] LABS: ALB/GLOB Ratio 0.7 RATIO (0.9-2.4); AST(SGOT) 28 U/L (15-37); Alanine Aminotransfer ALT/SGPT 14 U/L (13-56); Albumin, Serum 2.7 g/dL (3.2-5.0); Alkaline Phosphatase 100 U/L (45-117); Anion Gap 4 (5-15); BUN 6 mg/dL (7-18); BUN/Creat Ratio 10.4 RATIO (10-20); Calcium,Total 9.4 mg/dL (8.5-10.1); Chloride 100 mmol/L (98-107); Creatinine, Serum 0.58 mg/dL (0.55-1.02); EST Glomerular Filtration Rate 111 mL/min (>60); Est Glom Filt Rate - Afr Amer 134 mL/min (>60); Estimated Creatinine Clearance 45.85 ml/min; Glucose 111 mg/dL (74-106); Lipase 13 U/L (13-75); Potassium 3.6 mmol/L (3.5-5.1); Protein, Total 6.7 g/dL (6.4-8.2); Sodium Level 134 mmol/L (136-145)
[2023-01-15 14:19] LABS: Platelet Estimate ADEQUATE (ADEQ); Red Cell Morphology NORM C+C NORMAL (NORM C&C)
[2023-01-15] MEDS: Metoclopramide 10 MG/2 ML Vial 5 MG IV (14:37)
[2023-01-15 14:57] VITALS: BP 130/91; PULSE 74
[2023-01-15] MEDS: 0.9% Normal Saline 1,000 ML 999 ML IV (15:34)
[2023-01-15 16:59] VITALS: BP 129/86; PULSE 66; RESP 16; O2SAT 99
== END 2023-01-15 17:07 | disposition home or self-care (01) ==
PROVIDERS: Emergency Provider Emergency Medicine; PCP Family Medicine; Visit Provider Emergency Medicine
DX: R11.2 Nausea with vomiting, unspecified (principal); C56.9 Malignant neoplasm of unspecified ovary; E78.5 Hyperlipidemia, unspecified; E86.0 Dehydration; Z79.01 Long term (current) use of anticoagulants; Z79.899 Other long term (current) drug therapy
CPT/HCPCS: 36591; 80053; 83690; 85025; 96360; 96361; 99285; J7030; A4216; J2405

== ENCOUNTER 2023-01-19 17:24 | Emergency (ER) | payer MEDICARE, SELFPAY ==
[2023-01-19 17:26] VITALS: BP 120/83; PULSE 106; RESP 15; TEMP 36.4; O2SAT 97; BMI 25.7
--- NOTE | 2023-01-19 20:57 | ED.VIS.GI ---
HPI HPI - GI History of Present Illness Chief Complaint: Nausea/Vomiting Narrative Narrative: 67-year-old female presenting with nausea, vomiting. She states she feels like she is dehydrated. Patient was here 4 days ago with similar symptoms. She states she was given 2 bags of normal saline and IV Zofran and has felt good until today. She has ODT Zofran at home which does not seem to be helping however she states IV Zofran does. She states she does not have any pain. She does feel that she bloating. No urinary complaints. She has had a little bit of diarrhea. She has not had any chemotherapy since 8 days prior to her previous visit. Denies fevers. [facility] Medical History Allergic rhinitis Asthma Chemotherapy adverse reaction HLD (hyperlipidemia) Neuropathy Ovarian cancer Overweight Home Medications fluticasone furoate 100 mcg-vilanterol 25 mcg/dose inhalation powder (Breo Ellipta) 1 inh inhalation DAILY asthma 03/07/22 [History Last Taken 07/23/22] montelukast 10 mg tablet 10 mg PO QHS allergies 03/07/22 [History Last Taken 07/23/22] pravastatin 80 mg tablet 80 mg PO QHS cholesterol 03/07/22 [History Last Taken 07/23/22] apixaban 5 mg tablet (Eliquis) 5 mg PO BID 07/24/22 [History Last Taken 07/24/22] gabapentin 300 mg capsule 600 - 900 mg PO TID 07/24/22 [History Last Taken 07/23/22] pantoprazole 40 mg tablet,delayed release 40 mg PO BID GERD 07/24/22 [History Last Taken 07/23/22] acidophilus 25 million cell-pectin, citrus 100 mg tablet 1 tab PO DAILY 09/01/22 [History Last Taken Unknown] albuterol 90 mcg/actuation aerosol inhaler See Rx Instructions inhalation .COMPLEX 09/01/22 [History Last Taken Unknown] diphenoxylate-atropine 2.5 mg-0.025 mg tablet (Lomotil) 1 tab PO TID PRN Diarrhea 09/01/22 [History Last Taken Unknown] folic acid 1 mg tablet 1 mg PO DAILY 09/01/22 [History Last Taken Unknown] lidocaine-prilocaine 2.5 %-2.5 % topical cream 0.5 g topical DAILY PRN port access 09/01/22 [History Last Taken Unknown] magnesium chloride 71.5 mg (magnesium chloride) tablet,delayed release 71.5 mg PO BID 09/01/22 [History Last Taken Unknown] ondansetron 8 mg oral soluble film 8 mg PO Q8H PRN Nausea 09/01/22 [History Last Taken Unknown] potassium chloride 20 mEq tablet,extended release(part/cryst) (Klor-Con M) 40 meq PO DAILY 09/01/22 [History Last Taken Unknown] promethazine 25 mg rectal suppository 25 mg DE Q8H PRN PRN nausea and vomiting #12 ea 01/19/23 [Rx Last Taken Unknown] Allergy/AdvReac Type Severity Reaction Status Date / Time ondansetron Allergy Mild Other Verified 01/15/23 12:29 cephalexin [From Keflex] Allergy Nausea/Vom/ Verified 07/24/22 10:46 Diarrhea Family History Mother CAD (coronary artery disease) HLD (hyperlipidemia) Heart disease Father Heart disease Diabetes age 68 secondary to complicates of diabetes. Surgical History History of appendectomy History of cholecystectomy History of hysterectomy History of intestinal surgery Total knee replacement status Social History household members: spouse Smoking Status: Never smoker alcohol intake: never substance use type: does not use ROS ROS ED Constitutional Constitutional ED: Denies chills, fever(s) or sweats Eyes Eyes: Denies blurry vision or change in vision ENT ENT ED: Denies ear pain or sore throat Cardiovascular Cardiovascular: Denies chest pain, palpitations or racing heartbeat Respiratory/Chest Respiratory/Chest: Denies cough, dyspnea or sputum Gastrointestinal Gastrointestinal: Reports diarrhea and nausea; Denies abdominal pain, constipation or vomiting Genitourinary Genitourinary ED: Denies dysuria, hematuria or urinary frequency Musculoskeletal Musculoskeletal: Denies arthralgias, myalgias or neck pain Integumentary Denies abscess, Abrasions or rash Neurologic Neurologic: Denies headache(s), paresthesias or weakness Psychiatric Psychiatric: Denies anxiety, depression, suicidal ideation or suicidal thoughts Endocrine Endocrinology: Denies polydipsia or polyuria EXAM Physical Exam Const Vital Signs: 01/19/23 17:26 Temperature 97.5 F L Temperature Source Temporal Pulse Rate 106 H Respiratory Rate 15 Blood Pressure 120/83 H Blood Pressure Mean 95 Pulse Ox 97 Oxygen Delivery Method Room Air Positive well nourished General Appearance ED: NAD; Negative for pallor HEENT Reports moist mucous membranes trauma Eyes PERRL and EOMs intact bilaterally Neck no lymphadenopathy Resp normal respiratory effort Auscultation: Negative for rales, rhonchi or wheezes Cardio regular rate and regular rhythm GI non-tender, non-distended and no masses Back/Spine no CVA tenderness Neuro CN's II-XII intact bilaterally Sensorium / Orientation: alert, oriented to person and oriented to place Psych mental status grossly normal Skin General Skin Exam: Negative for jaundice or pallor MDM MDM MDM Narrative Medical decision making narrative: 67-year-old female presenting with nausea, vomiting with a little diarrhea. Patient just feels unwell. Vital signs are stable and she is afebrile. Differential includes gastroenteritis, dehydration, electrode abnormalities, anemia, upper GI bleed. CBC to assess for blood cell count, hemoglobin, platelets, differential. CMP to assess liver function, renal function, glucose, electrolytes. Lipase to assess for pancreatitis. Patient given IV Zofran, 2 L of normal saline. We are assessing urinalysis as well. CBC and CMP unremarkable. Lipase negative. Urinalysis negative. On reevaluation patient is feeling much better. She still has Zofran at home but I going to give her some Phenergan suppositories. She will follow-up with Dr. Crain and her PCP. Return precautions discussed Impression: 1. Nausea/vomiting Lab Data Labs: Laboratory Results - last 24 hr 01/19/23 01/19/23 21:30 22:45 WBC 5.4 RBC 3.64 L Hgb 11.3 L Hct 35.9 L MCV 98.6 MCH 31.0 MCHC 31.5 L RDW Std Deviation 53.0 H RDW Coeff of Alvarez 14.6 Plt Count 283 MPV 8.4 Immature Gran % (Auto) 0.900 Neut % (Auto) 77.5 H Lymph % (Auto) 12.7 L [place] % (Auto) 8.1 Eos % (Auto) 0.6 Baso % (Auto) 0.2 Absolute Neuts (auto) 4.2 Absolute Lymphs (auto) 0.69 L Nucleated RBC % 0 Sodium 134 L Potassium 3.6 Chloride 100 Carbon Dioxide 26.0 Anion Gap 8 BUN 7 Creatinine 0.57 Estim Creat Clear Calc 45.85 Est GFR (MDRD) Af Amer 136 Est GFR (MDRD) Non-Af 112 BUN/Creatinine Ratio 12.3 Glucose 103 Calcium 9.5 Total Bilirubin 0.60 AST 18 ALT 14 Alkaline Phosphatase 99 Total Protein 6.8 Albumin 2.6 L Globulin 4.2 Albumin/Globulin Ratio 0.6 L Lipase 10 L Urine Color Yellow Urine Clarity Sl. Cloudy Urine pH 6.0 Ur Specific [place] 1.020 Urine Protein Negative Urine Glucose (UA) Normal Urine Ketones 50 H Urine Occult Blood 10 H Urine Nitrite Positive H Urine Bilirubin Negative Urine Urobilinogen Normal Ur Leukocyte Esterase 100 H Urine RBC 0-5 SEEN Urine WBC 25-50 SEEN Ur Squamous Epith Cells 0-5 SEEN Urine Bacteria 1+ Urine Mucus 0 SEEN Discharge Plan Triage Chief Complaint: Nausea/Vomiting ED Provider: Jayjay Reyes Dx/Rx/DC Orders Instructions: ED Vomiting (Adult) Prescriptions: New promethazine 25 mg suppository 25 mg DE Q8H PRN PRN (Reason: nausea and vomiting) Qty: 12 0RF No Action pravastatin 80 mg Tablet 80 mg PO QHS montelukast 10 mg Tablet 10 mg PO QHS fluticasone furoate-vilanterol [Breo Ellipta] 100-25 mcg/dose Blister With Device 1 inh INHALATION DAILY gabapentin 300 mg capsule 600 - 900 mg PO TID Patient Comments: TAKE 2 CAPSULES BY MOUTH TWICE DAILY FOR NEUROPATHY (AM AND AT BEDTIME) Eliquis 5 mg tablet 5 mg PO BID pantoprazole 40 mg tablet,delayed release (DR/EC) 40 mg PO BID Patient Comments: TAKE 1 TABLET BY MOUTH ONCE DAILY AT 6:00 A.M. potassium chloride [Klor-Con M20] 20 mEq tablet,ER particles/crystals 40 meq PO DAILY acidophilus-pectin, citrus 25 million cell -100 mg tablet 1 tab PO DAILY diphenoxylate-atropine [Lomotil] 2.5-0.025 mg Tablet 1 tab PO TID PRN (Reason: Diarrhea) albuterol 90 mcg/actuation Aerosol See Rx Instructions INHALATION .COMPLEX Rx Instructions: inhaled; lidocaine-prilocaine [Emla] 2.5-2.5 % Cream 0.5 g topical DAILY PRN (Reason: port access) folic acid 1 mg Tablet 1 mg PO DAILY ondansetron 8 mg Film 8 mg PO Q8H PRN (Reason: Nausea) magnesium chloride 71.5 mg Tablet,Delayed Release (Dr/Ec) 71.5 mg PO BID Primary Care Provider: Chance Duckworth Referrals: Chance Duckworth MD [Primary Care Provider] - Orion Crain DO [Med Staff - Active Staff] - 3-5 Days Disposition Disposition: Home, Self Care
[2023-01-19] MEDS: 0.9% Normal Saline 1,000 ML 999 ML IV ×2 (21:22→23:02)
[2023-01-19] MEDS: Ondansetron 4 MG/2 ML Vial IV (21:22)
[2023-01-19 21:38] LABS: Absolute Lymphocyte Count 0.69 X10^3/uL (0.83-4.51); Absolute Neutrophil Count 4.2 X10^3/uL (2.0-7.7); Basophil# 0.01 X10^3/uL; Basophil% 0.2 % (0-1); Eosinophil# 0.03 X10^3/uL; Eosinophils% 0.6 % (0-5); Hematocrit 35.9 % (37-47); Hemoglobin 11.3 g/dL (12.0-15.0); Lymphocyte # 0.69 X10^3/ul (0.83-4.51); Lymphocyte % 12.7 % (19-41); Mean Corp Hgb Conc 31.5 g/dL (32-36); Mean Corpuscular Volume 98.6 fL (81-99); Mean Platelet Vol. 8.4 fl (6.2-12.0); Monocyte# 0.44 X10^3/uL; Monocyte% 8.1 % (0-10); NRBC Flagged by Analyzer 0 % (0-5); Neutrophil # 4.22 X10^3/uL (2.7-7.7); Neutrophil % 77.5 % (47-70); Platelet Count 283 K/mm3 (150-450); RBC Distribution Width CV 14.6 % (11.6-14.6); Red Blood Count 3.64 M/mm3 (4.2-5.4); White Blood Count 5.4 K/mm3 (4.4-11.0)
[2023-01-19 21:56] LABS: ALB/GLOB Ratio 0.6 RATIO (0.9-2.4); AST(SGOT) 18 U/L (15-37); Alanine Aminotransfer ALT/SGPT 14 U/L (13-56); Albumin, Serum 2.6 g/dL (3.2-5.0); Alkaline Phosphatase 99 U/L (45-117); Anion Gap 8 (5-15); BUN 7 mg/dL (7-18); BUN/Creat Ratio 12.3 RATIO (10-20); Calcium,Total 9.5 mg/dL (8.5-10.1); Chloride 100 mmol/L (98-107); Creatinine, Serum 0.57 mg/dL (0.55-1.02); EST Glomerular Filtration Rate 112 mL/min (>60); Est Glom Filt Rate - Afr Amer 136 mL/min (>60); Estimated Creatinine Clearance 45.85 ml/min; Globulin 4.2 g/dL (2.2-4.2); Glucose 103 mg/dL (74-106); Lipase 10 U/L (13-75); Potassium 3.6 mmol/L (3.5-5.1); Protein, Total 6.8 g/dL (6.4-8.2); Sodium Level 134 mmol/L (136-145)
[2023-01-19 22:51] LABS: Mucous, Urine 0 SEEN /hpf (<or=2+)
[2023-01-19 23:00] VITALS: RESP 18
[2023-01-19 23:10] LABS: Color, Urine Yellow (Yellow); Glucose, Dipstick Normal (Normal); Ketone-Dipstick 50 mg/dl (Negative); Leukocyte Esterase-Dipstick 100 /ul (Negative); Nitrite-Dipstick Positive (Negative); Occult Blood-Urine 10 /ul (Negative); Protein-Dipstick Negative (Negative); Urine Bilirubin Dipstick Negative (Negative); Urine Clarity Sl. Cloudy (Clear); Urine Urobilinogen Normal (Normal)
[2023-01-19 23:19] LABS: Bacteria 1+ /hpf (None Seen); Red Blood Cells-Urine 0-5 SEEN /hpf (0-5); Squamous Epithelial Cells - UA 0-5 SEEN /hpf (5-10); White Blood Cells 25-50 SEEN /hpf (0-5)
== END 2023-01-20 00:28 | disposition home or self-care (01) ==
PROVIDERS: Emergency Provider Student in an Organized Health Care Education/Training Program; PCP Family Medicine; Visit Provider Student in an Organized Health Care Education/Training Program
DX: R11.2 Nausea with vomiting, unspecified (principal); E78.5 Hyperlipidemia, unspecified; R19.7 Diarrhea, unspecified; J45.909 Unspecified asthma, uncomplicated; Z79.01 Long term (current) use of anticoagulants
CPT/HCPCS: 36591; 80053; 81001; 83690; 85025; 96361; 96374; 99284; J7030; A4216; J2405

== ENCOUNTER 2023-03-10 12:35 | Emergency (ER) | payer MEDICARE, SELFPAY ==
[2023-03-10 12:36] VITALS: BP 112/90; PULSE 134; RESP 18; TEMP 36.3; O2SAT 100; BMI 29.7
--- NOTE | 2023-03-10 13:05 | EX.ED.DYSGE1 ---
HPI History of Present Illness Chief Complaint: Nosebleed Narrative Narrative: 67-year-old female presenting with epistaxis. Apparently she has had 3 nosebleeds today. She is on Eliquis. Patient denies any digital trauma. The bleeding is now currently controlled. She states she was sent in by Dr. Crain for cauterization. Apparently the patient is also on chemo vacation and they state that Dr. Crain thought she might also be dehydrated. [facility] Medical History Allergic rhinitis Asthma Chemotherapy adverse reaction HLD (hyperlipidemia) Neuropathy Ovarian cancer Overweight Home Medications fluticasone furoate 100 mcg-vilanterol 25 mcg/dose inhalation powder (Breo Ellipta) 1 inh inhalation DAILY asthma 03/07/22 [History Last Taken 07/23/22] montelukast 10 mg tablet 10 mg PO QHS allergies 03/07/22 [History Last Taken 07/23/22] pravastatin 80 mg tablet 80 mg PO QHS cholesterol 03/07/22 [History Last Taken 07/23/22] apixaban 5 mg tablet (Eliquis) 5 mg PO BID 07/24/22 [History Last Taken 07/24/22] gabapentin 300 mg capsule 600 - 900 mg PO TID 07/24/22 [History Last Taken 07/23/22] pantoprazole 40 mg tablet,delayed release 40 mg PO BID GERD 07/24/22 [History Last Taken 07/23/22] acidophilus 25 million cell-pectin, citrus 100 mg tablet 1 tab PO DAILY 09/01/22 [History Last Taken Unknown] albuterol 90 mcg/actuation aerosol inhaler See Rx Instructions inhalation .COMPLEX 09/01/22 [History Last Taken Unknown] diphenoxylate-atropine 2.5 mg-0.025 mg tablet (Lomotil) 1 tab PO TID PRN Diarrhea 09/01/22 [History Last Taken Unknown] folic acid 1 mg tablet 1 mg PO DAILY 09/01/22 [History Last Taken Unknown] lidocaine-prilocaine 2.5 %-2.5 % topical cream 0.5 g topical DAILY PRN port access 09/01/22 [History Last Taken Unknown] magnesium chloride 71.5 mg (magnesium chloride) tablet,delayed release 71.5 mg PO BID 09/01/22 [History Last Taken Unknown] ondansetron 8 mg oral soluble film 8 mg PO Q8H PRN Nausea 09/01/22 [History Last Taken Unknown] potassium chloride 20 mEq tablet,extended release(part/cryst) (Klor-Con M) 40 meq PO DAILY 09/01/22 [History Last Taken Unknown] promethazine 25 mg rectal suppository 25 mg IN Q8H PRN PRN nausea and vomiting #12 ea 01/19/23 [Rx Last Taken Unknown] Allergy/AdvReac Type Severity Reaction Status Date / Time ondansetron Allergy Mild Other Verified 03/10/23 12:37 cephalexin [From Keflex] Allergy Nausea/Vom/ Verified 03/10/23 12:37 Diarrhea Family History Mother CAD (coronary artery disease) HLD (hyperlipidemia) Heart disease Father Heart disease Diabetes age 68 secondary to complicates of diabetes. Surgical History History of appendectomy History of cholecystectomy History of hysterectomy History of intestinal surgery Total knee replacement status Social History household members: spouse Smoking Status: Never smoker alcohol intake: never substance use type: does not use ROS ROS ED Constitutional Constitutional ED: Denies chills, fever(s) or sweats Eyes Eyes: Denies blurry vision or change in vision ENT ENT ED: Reports other Details: Epistaxis ; Denies ear pain or sore throat Cardiovascular Cardiovascular: Denies chest pain, palpitations or racing heartbeat Respiratory/Chest Respiratory/Chest: Denies cough, dyspnea or sputum Gastrointestinal Gastrointestinal: Denies abdominal pain, constipation, diarrhea, nausea or vomiting Genitourinary Genitourinary ED: Denies dysuria, hematuria or urinary frequency Musculoskeletal Musculoskeletal: Denies arthralgias, myalgias or neck pain Integumentary Denies abscess, Abrasions or rash Neurologic Neurologic: Denies headache(s), paresthesias or weakness Psychiatric Psychiatric: Denies anxiety, depression, suicidal ideation or suicidal thoughts Endocrine Endocrinology: Denies polydipsia or polyuria EXAM Physical Exam Const Vital Signs: 03/10/23 12:36 03/10/23 15:13 Temperature 97.3 F L Temperature Source Temporal Pulse Rate 134 H Respiratory Rate 18 18 Blood Pressure 112/90 H Blood Pressure Mean 97 Pulse Ox 100 Oxygen Delivery Method Room Air Positive well nourished General Appearance ED: NAD HEENT Reports moist mucous membranes HEENT Narrative: Dried blood in the right nare. No active bleeding. Oropharynx is patent without stridor. No blood in posterior oropharynx. Eyes PERRL and EOMs intact bilaterally Chest Wall inspection of chest normal Resp normal respiratory effort Cardio regular rate Rate: tachycardic Neuro oriented x3 and CN's II-XII intact bilaterally Sensorium / Orientation: alert Motor Exam: strength 5/5 throughout Psych mental status grossly normal Skin no rashes or lesions noted and no wounds MDM MDM MDM Narrative Medical decision making narrative: Patient presenting with epistaxis which is resolved. She has a clot over the nasal septum distally. There is no active bleeding. She not swallowing any blood. I initially recommended that she just leave the clot in place and I will give her follow-up with ENT. CBC and BMP unremarkable. Patient reevaluated and states she did blow her nose and did not have any bleeding. She is not swallowing any blood. I feel at this point she does not need any packing as she has been here for couple of hours. She was instructed to keep her nares moist. Return precautions discussed. Impression: 1. Epistaxis?resolved 2. Concern for dehydration Lab Data Labs: Laboratory Results - last 24 hr 03/10/23 13:40 WBC 8.6 RBC 3.25 L Hgb 9.9 L Hct 33.3 L MCV 102.5 H MCH 30.5 MCHC 29.7 L RDW Std Deviation 56.7 H RDW Coeff of Alvarez 15.1 H Plt Count 338 MPV 8.4 Immature Gran % (Auto) 0.800 Neut % (Auto) 88.2 H Lymph % (Auto) 5.3 L [place] % (Auto) 5.6 Eos % (Auto) 0.0 Baso % (Auto) 0.1 Absolute Neuts (auto) 7.6 Absolute Lymphs (auto) 0.46 L Nucleated RBC % 0 Differential Comment SCANNED Sodium 137 Potassium 3.5 Chloride 104 Carbon Dioxide 27.0 Anion Gap 6 BUN 8 Creatinine 0.54 L Estim Creat Clear Calc 53.99 Est GFR (MDRD) Af Amer 143 Est GFR (MDRD) Non-Af 118 BUN/Creatinine Ratio 14.8 Glucose 136 H Calcium 9.2 Discharge Plan Triage Chief Complaint: Nosebleed ED Provider: Jayjay Reyes Dx/Rx/DC Orders Instructions: Nosebleed Prescriptions: No Action pravastatin 80 mg Tablet 80 mg PO QHS montelukast 10 mg Tablet 10 mg PO QHS fluticasone furoate-vilanterol [Breo Ellipta] 100-25 mcg/dose Blister With Device 1 inh INHALATION DAILY gabapentin 300 mg capsule 600 - 900 mg PO TID Patient Comments: TAKE 2 CAPSULES BY MOUTH TWICE DAILY FOR NEUROPATHY (AM AND AT BEDTIME) Eliquis 5 mg tablet 5 mg PO BID pantoprazole 40 mg tablet,delayed release (DR/EC) 40 mg PO BID Patient Comments: TAKE 1 TABLET BY MOUTH ONCE DAILY AT 6:00 A.M. potassium chloride [Klor-Con M20] 20 mEq tablet,ER particles/crystals 40 meq PO DAILY acidophilus-pectin, citrus 25 million cell -100 mg tablet 1 tab PO DAILY diphenoxylate-atropine [Lomotil] 2.5-0.025 mg Tablet 1 tab PO TID PRN (Reason: Diarrhea) albuterol 90 mcg/actuation Aerosol See Rx Instructions INHALATION .COMPLEX Rx Instructions: inhaled; lidocaine-prilocaine [Emla] 2.5-2.5 % Cream 0.5 g topical DAILY PRN (Reason: port access) folic acid 1 mg Tablet 1 mg PO DAILY ondansetron 8 mg Film 8 mg PO Q8H PRN (Reason: Nausea) magnesium chloride 71.5 mg Tablet,Delayed Release (Dr/Ec) 71.5 mg PO BID promethazine 25 mg suppository 25 mg IN Q8H PRN PRN (Reason: nausea and vomiting) Qty: 12 0RF Primary Care Provider: Chance Duckworth Referrals: Chance Duckworth MD [Primary Care Provider] - Geronimo Collins MD [Med Staff - Active Staff] - 3-5 Days Disposition Disposition: Home, Self Care Discharge Date/Time: 03/10/23 15:16
[2023-03-10] MEDS: 0.9% Normal Saline 1,000 ML 999 ML IV (13:42)
--- NOTE | 2023-03-10 13:49 | CM.ED ---
Social Work SW met with patient and patient's family and introduced self and role as [facility] SW. Patient lying on hospital bed and agreeable to speak to SW with family present. SW inquired about completion of AD as they are not on file. Patient reports LW and HCPOA are completed, naming patient's as HCPOA. SW encouraged patient or family to bring documents, patient voiced understanding. Dione Cardona MSW, TRICIA
[2023-03-10 13:55] LABS: Absolute Lymphocyte Count 0.46 X10^3/uL (0.83-4.51); Absolute Neutrophil Count 7.6 X10^3/uL (2.0-7.7); Basophil# 0.01 X10^3/uL; Basophil% 0.1 % (0-1); Hematocrit 33.3 % (37-47); Hemoglobin 9.9 g/dL (12.0-15.0); Lymphocyte # 0.46 X10^3/ul (0.83-4.51); Lymphocyte % 5.3 % (19-41); Mean Corp Hgb Conc 29.7 g/dL (32-36); Mean Corpuscular Hgb 30.5 pg (27.0-32.0); Mean Corpuscular Volume 102.5 fL (81-99); Mean Platelet Vol. 8.4 fl (6.2-12.0); Monocyte# 0.48 X10^3/uL; Monocyte% 5.6 % (0-10); NRBC Flagged by Analyzer 0 % (0-5); Neutrophil # 7.62 X10^3/uL (2.7-7.7); Neutrophil % 88.2 % (47-70); POSITIVE DIFFERENTIAL YES; Platelet Count 338 K/mm3 (150-450); RBC Distribution Width CV 15.1 % (11.6-14.6); RBC Distribution Width SD 56.7 fl (35.1-43.9); Red Blood Count 3.25 M/mm3 (4.2-5.4); White Blood Count 8.6 K/mm3 (4.4-11.0)
[2023-03-10 14:07] LABS: Anion Gap 6 (5-15); BUN 8 mg/dL (7-18); BUN/Creat Ratio 14.8 RATIO (10-20); Calcium,Total 9.2 mg/dL (8.5-10.1); Chloride 104 mmol/L (98-107); Creatinine, Serum 0.54 mg/dL (0.55-1.02); EST Glomerular Filtration Rate 118 mL/min (>60); Est Glom Filt Rate - Afr Amer 143 mL/min (>60); Estimated Creatinine Clearance 53.99 ml/min; Glucose 136 mg/dL (74-106); Potassium 3.5 mmol/L (3.5-5.1); Sodium Level 137 mmol/L (136-145)
[2023-03-10 14:15] LABS: Differential Indicated SCAN CRITERIA MET
[2023-03-10 14:35] LABS: Differential Comment SCANNED
[2023-03-10 15:13] VITALS: RESP 18
== END 2023-03-10 15:16 | disposition home or self-care (01) ==
PROVIDERS: Emergency Provider Student in an Organized Health Care Education/Training Program; PCP Family Medicine; Visit Provider Student in an Organized Health Care Education/Training Program
DX: R04.0 Epistaxis (principal); E78.5 Hyperlipidemia, unspecified; E66.3 Overweight; Z68.29 Body mass index [BMI] 29.0-29.9, adult; Z79.01 Long term (current) use of anticoagulants; Z79.899 Other long term (current) drug therapy
CPT/HCPCS: 36591; 80048; 85025; 96360; 99282; J7030; A4216